=== PATIENT | female | born 1975 | race Caucasian/White ===

== ENCOUNTER 2017-10-13 21:55 | Emergency (ER) | payer MEDICAID, SELFPAY ==
[2017-10-13 21:57] VITALS: BP 134/86; PULSE 74; RESP 17; TEMP 37.1; O2SAT 98; BMI 23.3
[2017-10-13 22:06] LABS: Bedside Glucose 104 mg/dL (70-110)
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
--- NOTE | 2017-10-13 22:48 | ED.RN ---
UPON STARTING IV, PATIENT STATES THAT SHE IS NOW DEVELOPING NECK AND BACK PAIN, ALONG WITH RIGHT ARM PAIN. DR. REILLY MADE AWARE.
--- NOTE | 2017-10-13 22:55 | RAD_ITS ---
STUDY: X-RAY - THORACIC SPINE REASON FOR EXAM: Female, 42 years old. Upper back pain. TECHNIQUE: 2 view(s) of the thoracic spine were obtained. COMPARISON: None. FINDINGS: Normal kyphosis of the thoracic spine. There is no substantial scoliosis. There is mild multilevel endplate spondylosis of the thoracic vertebrae. Normal disc space heights. The soft tissue structures are unremarkable. RAD/Thoracic Spine 3 Views IMPRESSION: No fracture or acute abnormalities. Electronically Signed: Kings Mota MD at 23:24 EDT , Service support ,
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
--- NOTE | 2017-10-13 22:56 | RAD_ITS ---
STUDY: X-RAY - LUMBAR SPINE REASON FOR EXAM: Female, 42 years old. Low back pain TECHNIQUE: 3 view(s) of the lumbar spine were obtained. COMPARISON: None FINDINGS: Normal lumbar lordosis. There is no substantial scoliosis. There is a normal alignment of the vertebrae. There are multiple metallic clips in the right upper quadrant. This is consistent for a cholecystectomy. Normal vertebral bodies and endplates. Normal disc space heights. The soft tissue structures are unremarkable. RAD/Lumbar Spine 2 or 3 Views IMPRESSION: Normal x-ray examination of the lumbar spine. Electronically Signed: Aly Gonzales MD at 23:27 EDT , Service support ,
[2017-10-13 22:58] LABS: Basophil# 0.02 X10^3/uL; Basophil% 0.3 % (0-1); Eosinophil# 0.01 X10^3/uL; Eosinophils% 0.2 % (0-5); Hematocrit 35.6 % (37-47); Hemoglobin 12.1 g/dl (12.0-15.0); Lymphocyte % 23.8 % (19-41); Mean Corpuscular Hgb 31.1 pg (27.0-32.0); Mean Corpuscular Volume 91.5 fL (81-99); Mean Platelet Vol. 9.3 fl (6.2-12.0); Monocyte# 0.49 X10^3/uL; Monocyte% 8.3 % (0-10); Neutrophil # 3.95 X10^3/uL (2.7-7.7); Neutrophil % 67.2 % (47-70); POSITIVE COUNT NO; POSITIVE DIFFERENTIAL NO; POSITIVE MORPHOLOGY NO; Platelet Count 313 K/mm3 (150-450); RBC Distribution Width CV 12.7 % (11.6-14.6); Red Blood Count 3.89 M/mm3 (4.2-5.4); White Blood Count 5.9 K/mm3 (4.4-11.0)
--- NOTE | 2017-10-13 23:05 | RAD_ITS ---
STUDY: X-RAY - LEFT HAND, ATTENTION 5th FINGER REASON FOR EXAM: Female, 42 years old. Fifth digit pain. TECHNIQUE: 3 view(s) of the finger were obtained. COMPARISON: None. FINDINGS: Normal metacarpal head. Normal metacarpophalangeal joint. Normal proximal phalanx. Normal middle phalanx. Normal distal phalanx. Normal proximal interphalangeal joint. Normal distal interphalangeal joint. RAD/Finger(s) Min 2 Views IMPRESSION: Normal x-ray examination of the finger. Electronically Signed: Aly Gonzales MD at 23:27 EDT , Service support ,
[2017-10-13 23:20] LABS: ALB/GLOB Ratio 1.3 RATIO (0.9-2.4); AST(SGOT) 22 U/L (15-37); Alanine Aminotransfer ALT/SGPT 23 U/L (13-56); Albumin, Serum 3.6 g/dL (3.2-5.0); Alkaline Phosphatase 56 U/L (45-117); Anion Gap 5 (5-15); BUN 12 mg/dL (7-18); Calcium,Total 8.5 mg/dL (8.5-10.1); Chloride 106 mmol/L (98-107); Creatinine, Serum 0.71 mg/dL (0.55-1.02); EST Glomerular Filtration Rate 96 mL/min (>60); Est Glom Filt Rate - Afr Amer 116 mL/min (>60); Estimated Creatinine Clearance 94.66 ml/min; Globulin 2.8 g/dL (2.2-4.2); Glucose 85 mg/dL (74-106); Lipase 260 U/L (73-393); Potassium 3.6 mmol/L (3.5-5.1); Protein, Total 6.4 g/dL (6.4-8.2); Sodium Level 141 mmol/L (136-145)
[2017-10-13 23:24] LABS: Pregnancy, Serum, hCG Quali. NEGATIVE Negative (0-9 Nonpreg)
[2017-10-13] MEDS: Morphine 2 MG/ML Syringe IV (23:24)
--- NOTE | 2017-10-13 23:33 | CT_ITS ---
STUDY: CT CERVICAL SPINE WITHOUT CONTRAST REASON FOR EXAM: Female, 42 years old. Seizure RADIATION DOSAGE (If Supplied By Facility): CTDIvol = ( 18.06 ) mGy, DLP = ( 398.13 ) mGycm TECHNIQUE: High resolution transaxial imaging was performed without contrast material. Sagittal and coronal images were reconstructed. Individualized dose optimization techniques were used for this CT. COMPARISON: None FINDINGS: Normal craniovertebral junction. Normal anterior atlantoaxial articulation. Normal odontoid process. Normal cervical lordosis. Normal vertebral bodies and posterior osseous elements. C2-3: Normal endplates. Normal disc height and morphology. Normal central canal and intervertebral neuroforamina. C3-4: Normal endplates. Normal disc height and morphology. Normal central canal and intervertebral neuroforamina. C4-5: Normal endplates. Normal disc height and morphology. Normal central canal and intervertebral neuroforamina. C5-6: Normal endplates. There is mild loss of disc height and mild osteophytic ridging. There is NO malalignment. Facet joints are intact. There is NO spinal or foraminal stenosis. C6-7: Normal endplates. Normal disc height and morphology. Normal central canal and intervertebral neuroforamina. C7-T1: Normal endplates. Normal disc height and morphology. Normal central canal and intervertebral neuroforamina. Normal visualized soft tissue structures. CT/Spine Cervical without Contras IMPRESSION: There is NO acute fracture or malalignment. There is mild degenerative change at C5-C6. Electronically Signed: Edgard Soares MD at 0:47 EDT , Service support ,
[2017-10-13 23:56] LABS: Bacteria 0 SEEN /hpf (None Seen); Mucous, Urine 0 SEEN /hpf (<or=2+); Red Blood Cells-Urine 0 SEEN /hpf (0-5)
[2017-10-14 00:07] LABS: Color, Urine Yellow (Yellow); Glucose, Dipstick Normal (Normal); Ketone-Dipstick 5 mg/dl (Negative); Leukocyte Esterase-Dipstick 25 /ul (Negative); Nitrite-Dipstick Negative (Negative); Occult Blood-Urine Negative /ul (Negative); Protein-Dipstick 15 mg/dl (Negative); Urine Bilirubin Dipstick Negative (Negative); Urine Clarity Sl. Cloudy (Clear); Urine Urobilinogen Normal (Normal); Urine pH 6.5 (5.0 - 8.0)
[2017-10-14] MEDS: Ketorolac 30 MG/ML Syringe IV (00:08)
[2017-10-14 00:11] VITALS: BP 133/81; PULSE 58; RESP 14; O2SAT 99
[2017-10-14 00:14] LABS: Squamous Epithelial Cells - UA > 100 SEEN /hpf (5-10); White Blood Cells 0-5 SEEN /hpf (0-5)
--- NOTE | 2017-10-14 00:42 | ED.DEP ---
ED Disposition - Plan for ED Patient: Chief Complaint: Seizure Instructions: ED Seizure Recurrent, ED Fx Finger Closed Referrals: Thierry Wiley DO [Primary Care Provider] - 3-5 Days
--- NOTE | 2017-10-14 00:43 | ED.DEP ---
ED Disposition - Plan for ED Patient: Chief Complaint: Seizure Instructions: ED Fx Finger Closed, ED Seizure Recurrent Referrals: Thierry Wiley DO [Primary Care Provider] - 3-5 Days Additional Instructions: call Dr. Shah in the morning to discuss seizure and follow up.
--- NOTE | 2017-10-14 02:55 | ED.RN ---
DISPOSITION CHARTED ON DOWNTIME CHARTING.
== END 2017-10-14 01:21 | disposition home or self-care (01) ==
PROVIDERS: Emergency Provider Emergency Medicine; Family Provider Student in an Organized Health Care Education/Training Program; PCP Student in an Organized Health Care Education/Training Program
DX: S62.625A Displaced fracture of middle phalanx of left ring finger, initial encounter for closed fracture (principal); V47.5XXA Car driver injured in collision with fixed or stationary object in traffic accident, initial encounter; Y93.89 Activity, other specified; Y92.89 Other specified places as the place of occurrence of the external cause; Y99.9 Unspecified external cause status; G40.909 Epilepsy, unspecified, not intractable, without status epilepticus
CPT/HCPCS: 72040; 72072; 72100; 72125; 73140; 80053; 81001; 82962; 83690; 84703; 85025; 96374; 96375; 96376; 99285; J7030; J7040; A4216

== ENCOUNTER 2017-11-27 14:00 | Outpatient (RCR) | payer MEDICAID, SELFPAY ==
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
--- NOTE | 2017-11-27 14:40 | HP.PTDCSUM ---
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 Discharge Date: Please see the following information for a summary of their discharge status. - Subjective Subjective: PLAYED TENNIS FOR TWO HOURS THIS MORNING. PATIENT REPORTS SHE HAS NOT RETURNED TO WORK YET FOR REASONS OTHER THAN HER BACK. SHE REPORTS THAT SHE DID REALLY GOOD AFTER LAST VISIT. PATIENT REPORTS HER BACK IS ALMOST BACK TO WHERE IT WAS BEFORE THE ACCIDENT. - Pain LOW BACK Pain Intensity (Out of 10): 0 - Overall Improvement % Improvement: 90 - Objective Objective/Function: ALL GOALS MET. UPON EXAM, LUMBAR MVMT LOSS: FLEX - NIL, EXT - MOD, LEONARD SG - NIL. PATIENT DENIES INCREASED PAIN WITH LUMBAR ROM TESTING. INDEP WITH HEP. BACK OSWESTRY HAS IMPROVED FROM 15 TO 8. - Goals Goal 1:: DECREASE C/O LOW BACK AND LEONARD TOE SX'S Goal Progress: Goal Met Goal 2:: RETURN TO PRIOR LEVEL OF FUNCTION Goal Progress: Goal Met Goal 3:: INCREASE PAINFREE LUMBAR EXT ROM Goal Progress: Goal Met Goal 4:: INSTRUCT IN PROPHYLAXIS Goal Progress: Goal Met - Plan Plan: D/C TO INDEP HEP. PATIENT IS AGREEABLE TO DISCHARGE. - D/C Information If there are questions or concerns regarding this patient's physical therapy, please feel free to call me at [phone]. Thank you for the referral of this patient. Sincerely, Gina Rodriguez
== END 2017-11-27 19:00 | disposition home or self-care (01) ==
LOC: PT 14:00
PROVIDERS: Family Provider Student in an Organized Health Care Education/Training Program; PCP Student in an Organized Health Care Education/Training Program; Visit Provider Student in an Organized Health Care Education/Training Program
DX: M54.5 Low back pain (principal); G89.29 Other chronic pain
CPT/HCPCS: 97014; 97035; 97110; 97162; 97164; 97530; G0283

== ENCOUNTER → 2018-07-12 12:13 | Outpatient (CLI) | payer MEDICAID, SELFPAY ==
--- NOTE | 2018-07-12 12:26 | EKG12_ITS ---
Test Reason : PREOP Blood Pressure : / mmHG Vent. Rate : 058 BPM Atrial Rate : 058 BPM P-R Int : 158 ms QRS Dur : 090 ms QT Int : 412 ms P-R-T Axes : 040 089 048 degrees QTc Int : 404 ms Sinus bradycardia Otherwise normal ECG When compared with ECG of 23-MAR-2016 18:31, No significant change was found Confirmed by LONG HOLDEN, OSIRIS ([id number]), development editor JAMES KUHN ([id number]) on 07/13/2018 1:42:01 PM Referred By: Italo Lawson Confirmed By:OSIRIS ALVES MD
== END ==
PROVIDERS: Family Provider Student in an Organized Health Care Education/Training Program; PCP Student in an Organized Health Care Education/Training Program; Referring Provider Orthopaedic Surgery; Visit Provider Orthopaedic Surgery
DX: Z01.810 Encounter for preprocedural cardiovascular examination (principal)
CPT/HCPCS: 93005

== ENCOUNTER 2018-09-01 09:30 | Outpatient (RCR) | payer MEDICAID, SELFPAY ==
--- NOTE | 2018-08-05 14:39 | HP.OTEVAL_ITS ---
Patient's Visit Information JUDIE STANLEY is a 43 year old F, referred to Occupational Therapy by Italo Lawson DO, with a diagnosis of Right radial styloid tenosynovitis DeQuarvains. Date of Evaluation: 08/03/18 Occupational Therapist: Maile Espitia, DEONNA/Denia, CHT - Subjective Subjective: This 43 year old female was seen for intial OT eval with dx of Radial Styloid tenosynovitis / DeQuarvains. Pt states she has had issues with pain for awhile. pt states she did have 3 cortizone shots- Ater they did not help pt did have sx on 07/15/18 sitches removed last week-pt is hopeful she can start using her hand again for all ADLs and IADLs soon. 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 Goal:: pt will demo right wrist ROM equal to left to return pt to PLOF with ADLs and IADLs by d/c Goal:: pt will demo pain no greater than 1/10 with use of right hand ADLs and IADLS. Goal:: pt will demo understanding of scar mtg and desensitization by end of 2nd visit to decrease scar adhesions. - Rehabilitation General Assessment: PT arrives 2 weeks and 5 days S/P dequarvains release. Pt demo with limited right wrist ROM and functional strength- pt demo with slight brusing (yellow skin discoloration). pts scar is sensitive to touch and limits pts use of long sleeves. pt demo need for skilled OT services 2-3x week for 4 weeks to retun pt to PLOF. Today pt was ed. on wrist ROM, thumb ROM, ice, scar mtg and desensitization. Pt demo understanding and agrees to POC. Rehabilitation Potential: Excellent - Anticipated Interventions Anticipated Interventions: A/AAROM/PROM, Strengthening, Scar Care, Desensitization, Modalities - Visit Plan Frequency: 2-3x /Week Duration: 4 Weeks TEXT: Thank you for the opportunity to evaluate your patient. For Medicare and Medicare HMO plans, please review the plan of care and approve it. It will need to be FAXED BACK to us at [phone] for Medicare purposes. Please let me know if there are questions or concerns regarding this plan of care. Physician Signature: Date:
--- NOTE | 2018-11-05 10:02 | HP.OT.NRP ---
HP - Discharge Summary - Patient Information JUDIE STANLEY was seen in my office for initial evaluation on 08/03/18. The following Plan of Care was established for this patient: Initial Frequency: 2-3x /Week Initial Duration: 4 Weeks Plan: cont w/ prior POC - Anticipated Interventions Anticipated Interventions: A/AAROM/PROM, Strengthening, Scar Care, Desensitization, Modalities This patient was last seen in our office 09/01/18. Pertinent comments regarding their Occupational therapy will appear below: Pt was seen in OT for 11 visits following 1st dorsal release. pt has progressed well and has returned to playing tennis. Pt has not returned for further tx and is d/c with HEP. At this point I will be discontinuing this patient from occupational therapy. I would be happy to see this patient again in the future if found appropriate by the physician. Thank you! Maile Espitia, OTR/L, CHT
== END 2018-09-01 19:00 | disposition home or self-care (01) ==
LOC: OT 09:30
PROVIDERS: Family Provider Student in an Organized Health Care Education/Training Program; PCP Student in an Organized Health Care Education/Training Program; Referring Provider Orthopaedic Surgery; Visit Provider Orthopaedic Surgery
DX: M65.4 Radial styloid tenosynovitis [de Quervain] (principal)
CPT/HCPCS: 97035; 97110; 97140; 97166

== ENCOUNTER 2019-02-28 20:35 | Emergency (ER) | payer MEDICAID, SELFPAY ==
[2019-02-28 20:36] VITALS: BP 147/84; PULSE 95; RESP 16; TEMP 36.7; O2SAT 97; BMI 22.4
[2019-02-28 21:40] VITALS: BP 129/87; PULSE 75; RESP 17; O2SAT 100
--- NOTE | 2019-02-28 21:44 | ED.DCSUM_ITS ---
- ER Visit Summary Date of Service: 02/28/19 Chief Complaint: Seizure History of Present Illness: The patient is a 43 F who presents with a seizure that occurred today while playing basketball. Patient states she was told by witnesses that it was approximately 45 seconds in length. Patient states she was told it was generalized and tonic-clonic. Patient states that bystanders also told her that she was postictal for approximately 3 to 5 minutes. Patient has a history of seizures and states this is similar to other seizures. Patient bit her lower lip. Patient denies any incontinence of urine or stool. Physical Examination: Vital signs are stable. Patient is afebrile. Patient is in no acute distress. Oral mucosa is pink and moist. There is a superficial abrasion and contusion of the lower lip. There are no other intraoral abrasions or lacerations. Neck is supple. Trachea is midline. There is no JVD noted. Heart was regular rate and rhythm. Lungs are clear and equal bilaterally. Abdomen is soft. Bowel sounds are normal. There is no tenderness. There is no guarding noted. Skin is warm dry. Cranial nerves II through XII are intact. There are no focal motor or sensory deficits noted. Emergency Department Course and Treatment: Patient is feeling better on reevaluation. Patient was instructed to follow-up with her primary care physician and neurologist in 5 to 7 days. Patient and her understood and were agreeable with the plan. All questions were answered. Disposition: Discharge home Impression: Seizure This note was generated with [employer] dictation software. It may contain incorrect words, spelling, and punctuation that were not noted in review of the chart prior to signing ED Disposition - Plan for ED Patient: Disposition: Home or Assisted Living Diagnosis: Seizure Instructions: SEIZURE, Recurrent [Adult] Referrals: Thierry Wiley DO [Primary Care Provider] - 3-5 Days
[2019-02-28 21:53] VITALS: BP 121/83; PULSE 79; RESP 17; O2SAT 100
== END 2019-02-28 22:12 | disposition home or self-care (01) ==
LOC: ED 22:11
PROVIDERS: Emergency Provider Emergency Medicine; Family Provider Student in an Organized Health Care Education/Training Program; PCP Student in an Organized Health Care Education/Training Program
DX: S01.551A Open bite of lip, initial encounter (principal); Y93.67 Activity, basketball; R56.9 Unspecified convulsions; J02.9 Acute pharyngitis, unspecified; M54.9 Dorsalgia, unspecified
CPT/HCPCS: 99284; A4216

== ENCOUNTER → 2022-07-04 | Outpatient (CLI) | payer MEDICAID, SELFPAY ==
--- NOTE | 2022-07-04 09:17 | MRI_ITS ---
EXAM: MR RIGHT UPPER EXTREMITY WITHOUT INTRAVENOUS CONTRAST, SHOULDER CLINICAL INDICATION: RIGHT shoulder IMPINGEMENT SYNDROME TECHNIQUE: Multiplanar and multisequence MR images of the right shoulder without intravenous contrast. This report was created using [employer] and [employer] report Patient Engagement Systems technology. COMPARISON: None. FINDINGS: TENDONS: SUPRASPINATUS: Low to moderate grade focal partial-thickness tearing of the supraspinatus tendon at the level of the footprint of the tendon. Background of mild to moderate supraspinatus tendinosis. INFRASPINATUS: Moderate grade focal partial thickness insertional tear of the infraspinatus tendon involving the articular fibers and the intrasubstance fibers with preservation of the bursal surface fibers. Background of moderate infraspinatus tendinosis. SUBSCAPULARIS: Unremarkable. Intact. TERES MINOR: Unremarkable. Intact. BICEPS BRACHII, LONG HEAD: Long head of the biceps tendon is normal in position and appearance. The extra-articular biceps tendon is in the bicipital groove. LIGAMENTS: GLENOHUMERAL: Unremarkable. Intact. MUSCLES: Unremarkable. No rotator cuff muscle atrophy. FLUID: At least a moderate amount of fluid in the subacromial/subdeltoid bursa is concerning for bursitis. No significant glenohumeral joint effusion. CARTILAGE: Unremarkable. Articular cartilage intact. GLENOID LABRUM: Somewhat attenuated appearance of the anterior labrum. If concerned for labral tear, recommend MR arthrography. BONES/JOINTS: Up to moderate hypertrophic degenerative changes of the acromioclavicular joint with mild/moderate mass effect on the underlying soft tissues. Hooked appearance of the acromion. No additional subacromial enthesophyte. No os acromiale. Thickened appearance of the coracoacromial ligament. Small benign cyst at the posterior superior humeral head. No other remarkable bone marrow signal alterations. No concerning bone marrow signal alterations. OTHER SOFT TISSUES: Elongated lobulated cyst along the infraspinatus myotendinous junction is most likely associated with a musculotendinous junction low to moderate grade partial-thickness tear. MRI/Upper Ext Joint Only(Routine) IMPRESSION: 1. Low to moderate grade focal partial-thickness tearing of the supraspinatus tendon at the level of the footprint of the tendon. 2. Moderate grade focal partial thickness insertional tear of the infraspinatus tendon involving the articular fibers and the intrasubstance fibers with preservation of the bursal surface fibers. 3. Elongated lobulated cyst along the infraspinatus myotendinous junction is most likely associated with a musculotendinous junction low to moderate grade partial-thickness tear. 4. At least a moderate amount of fluid in the subacromial/subdeltoid bursa is concerning for bursitis. 5. Somewhat attenuated appearance of the anterior labrum. If concerned for labral tear, recommend MR arthrography. Electronically Signed: Oni Ta MD at 21:57 EST ,
--- NOTE | 2022-07-04 09:18 | MRI_ITS ---
EXAM: MR LEFT UPPER EXTREMITY WITHOUT INTRAVENOUS CONTRAST, SHOULDER CLINICAL INDICATION: LEFT SHOULDER- IMPINGEMENT SYNDROME TECHNIQUE: Multiplanar and multisequence MR images of the left shoulder without intravenous contrast. This report was created using [employer] report paymio technology. COMPARISON: None. FINDINGS: TENDONS: SUPRASPINATUS: At the junction of the posterior fibers of the supraspinatus tendon and anterior fibers of the infraspinatus tendon there is a moderate grade articular sided partial-thickness tear extending into the intrasubstance tissues on a background of moderate supraspinatus and infraspinatus tendinosis. INFRASPINATUS: See above. SUBSCAPULARIS: Unremarkable. Intact. TERES MINOR: Unremarkable. Intact. BICEPS BRACHII, LONG HEAD: Long head of the biceps tendon is normal in position and appearance. The extra-articular biceps tendon is in the bicipital groove. LIGAMENTS: GLENOHUMERAL: Unremarkable. Intact. MUSCLES: Muscles are normal. No rotator cuff muscle atrophy. FLUID: Fluid in the subacromial/subdeltoid bursa is concerning for bursitis. No glenohumeral joint effusion. CARTILAGE: Unremarkable. Articular cartilage intact. GLENOID LABRUM: Unremarkable. No labral tearing. BONES/JOINTS: Up to moderate hypertrophic degenerative changes acromioclavicular joint with mild mass effect on the underlying soft tissues. Hooked appearance of the acromion. No additional subacromial enthesophyte. No os acromiale. Mild thickening of the coracoacromial ligament. Small benign cystic changes at the posterior superior humeral head. No concerning bone marrow signal alterations. OTHER SOFT TISSUES: Unremarkable. No rotator interval edema. OTHER FINDINGS: Neurovascular structures are unremarkable. MRI/Upper Ext Joint Only(Routine) IMPRESSION: 1. At the junction of the posterior fibers of the supraspinatus tendon and anterior fibers of the infraspinatus tendon there is a moderate grade articular sided partial-thickness tear extending into the intrasubstance tissues on a background of moderate supraspinatus and infraspinatus tendinosis. 2. Fluid in the subacromial/subdeltoid bursa is concerning for bursitis. Electronically Signed: Oni Ta MD at 21:41 EST ,
== END | disposition home or self-care (01) ==
PROVIDERS: PCP Student in an Organized Health Care Education/Training Program; Referring Provider Orthopaedic Surgery; Visit Provider Orthopaedic Surgery
DX: M75.42 Impingement syndrome of left shoulder (principal); M75.41 Impingement syndrome of right shoulder
CPT/HCPCS: 73221

== ENCOUNTER 2022-08-11 05:56 | Day surgery (SDC) | payer MEDICAID, SELFPAY ==
[2022-07-31 15:19] LABS: Hematocrit 42.8 % (37-47); Mean Corp Hgb Conc 32.7 g/dL (32-36); Mean Corpuscular Hgb 30.2 pg (27.0-32.0); Mean Corpuscular Volume 92.4 fL (81-99); Mean Platelet Vol. 9.6 fl (6.2-12.0); Platelet Count 368 K/mm3 (150-450); RBC Distribution Width CV 13.1 % (11.6-14.6); RBC Distribution Width SD 44.6 fl (35.1-43.9); Red Blood Count 4.63 M/mm3 (4.2-5.4); White Blood Count 6.3 K/mm3 (4.4-11.0)
[2022-07-31 15:28] LABS: Prothrombin Time (Protime)PT. 12.7 SECONDS (11.7-14.9)
[2022-07-31 15:29] LABS: Partial Thromboplast Time 27.6 Seconds (24.1-36.2)
[2022-07-31 15:51] LABS: AST(SGOT) 16 U/L (15-37); Alanine Aminotransfer ALT/SGPT 25 U/L (13-56); Albumin, Serum 4.2 g/dL (3.2-5.0); Alkaline Phosphatase 65 U/L (45-117); Bilirubin, Direct 0.11 mg/dL (0.00-0.30); Globulin 3.2 g/dL (2.2-4.2); Protein, Total 7.4 g/dL (6.4-8.2); Thyroid Stim Hormone (TSH) 0.35 uIU/mL (0.358-3.74)
[2022-08-11] VITALS (9 sets, daily range): BP systolic 100–126; BP diastolic 69–81; PULSE 46–78; RESP 16–18; TEMP 36–36.8; O2SAT 94–100; BMI 23.1
[2022-08-11 06:40] LABS: Internal QC Validated? YES +Cl - CLEAR BKGD; Pregnancy, Urine Negative Negative
[2022-08-11] MEDS: Lactated Ringers 1,000 ML 15 ML IV ×2 (06:44→09:00)
[2022-08-11] MEDS: Cefazolin 2 GM in 0.9% Normal Saline 100 ML IV (07:33)
[2022-08-11] MEDS: dexAMETHasone 4 MG/ML Vial (08:00)
[2022-08-11] MEDS: Bupiv/Epi 0.25% 30 ML Vial (08:04)
[2022-08-11] MEDS: Epinephrine (1 mg/ml) 1 MG/ML VIAL (08:16)
--- NOTE | 2022-08-11 11:19 | OP.PCM_ITS ---
Report of Operation Date of Procedure: 08/11/22 Pre-Operative Diagnosis: SAIS, AC joint arthrosis, RCT right shoulder Post-Operative Diagnosis: same Surgery/Procedure Performed:: ASD, Thierry procedure, RCR right shoulder Description of Surgical Findings:: Report of Operation Date of Procedure: 08/11/2022 Preoperative Diagnosis: Right shoulder, SAIS, AC joint arthrosis and RCT Postoperative Diagnosis: Right Shoulder, same Operation: Diagnostic and operative arthroscopy of the right shoulder with arthroscopic subacromial decompression, Thierry procedure and rotator cuff repair Surgeon: Dr Italo Lawson DO Professor Of Nursing: LETA Ervin Anesthesia: General Anesthesiologist: Blake Gallegos M.D. Description of Procedure: With appropriate informed consent, the patient was taken to the operative suite. After induction of general and regional anesthesia and administration of preoperative antibiotics, the patient was placed in a beach-chair position with all bony prominences well padded. SCD's were on the legs. The right arm and shoulder were prepared and draped sterilely. Thereafter, the standard arthroscopy portals were established. The glenohumeral joint was in good condition without evidence of damage or arthrosis. An anterior portal was established. The biceps tendon was in excellent condition. There was no labral instability. There was a tear of the supraspinatus into the leading edge of the infraspinatus. The undersurface of this was debrided with a shaver and marked with an 0 Prolene suture for easier identification from the bursal surface. The arthroscopy instruments were then removed from the joint and placed into the subacromial space. A lateral portal was established. There was severe hypertrophic subacromial bursitis. A complete subacromial bursectomy was carried out. This revealed a large anterior inferior subacromial spur and significant AC joint arthrosis. A bur was utilized to perform an anterior inferior acromionectomy to flatten the undersurface of the acromion and decompress the subacromial space. The bur was then utilized to resect the distal 9mm of the clavicle in the manner of Thierry. Attention was now brought to the rotator cuff. The rotator cuff footprint was slightly decorticated with a bur. Thereafter, [ 4 ] Arthrex FiberTape suture was placed in a horizontal mattress fashion and then augmented with a FiberLoop to augment the repair. The sutures were brought out laterally then over [ 2 ] SwiveLock anchor, very nicely bringing the rotator cuff back down to the footprint and compressing it. The free ends of the sutures were cut and I was able to take the shoulder through a full range of motion with no evidence of undue impingement or undue tension upon the repair. Arthroscopy instruments and fluids were removed. The portals were closed with interrupted sutures of 4-0 nylon followed by application of a sterile well- padded dressing and UltraSling. My bilingual teacher assistant, Mr Perrin, provided a vital role in the performance of this procedure beginning with positioning of the patient, maneuvering the arm, holding the arthroscope during various portions of the diagnostic and operative arthroscopy. Then, under my direct supervision, he closed the wounds and applied the sterile post-operative dressing. The patient was extubated and transferred to the PACU in stable and satisfactory condition. Italo Lawson DO Surgeon: Italo Lawson set and exhibit designer: Steven Liao Type of Anesthesia: General/Regional Anesthesiologist: Blake Gallegos Estimated Blood Loss (mL): 10 cc Admit VTE Documentation VTE Present on Admission: No VTE Mechan Device Prophylaxis: SCD's and Thigh High KELLI Hose VTE Pharm Prophylaxis ordered?: No Reason prophylaxis not ordered:: Treatment Not Indicated
[2022-08-11] MEDS: HYDROcodone Bitartrate/Apap 5/325 Tablet PO (11:21)
== END 2022-08-11 12:58 | disposition home or self-care (01) ==
LOC: SDC 05:58 → AC 06:01
PROVIDERS: Anesthesiology; PCP Student in an Organized Health Care Education/Training Program; Referring Provider Orthopaedic Surgery; Visit Provider Orthopaedic Surgery
PROC: (CPT 29827; principal; 2022-08-11 07:10)
DX: M19.011 Primary osteoarthritis, right shoulder (principal); G40.909 Epilepsy, unspecified, not intractable, without status epilepticus; S46.011D Strain of muscle(s) and tendon(s) of the rotator cuff of right shoulder, subsequent encounter; S46.012D Strain of muscle(s) and tendon(s) of the rotator cuff of left shoulder, subsequent encounter; Z86.16 Personal history of COVID-19
CPT/HCPCS: 29826; 29827; 29824; 01630; 36415; 80076; 81025; 84443; 85027; 85610; 85730; J7120; J0702; J2405

== ENCOUNTER → 2022-10-10 | Outpatient (CLI) | payer MEDICAID, SELFPAY ==
--- NOTE | 2022-10-10 15:01 | VDLE_ITS ---
Reason For Study: Pain RIGHT LEFT CFV is compressible, spontaneous, phasic, CFV is compressible, spontaneous, phasic, competent and demonstrates normal competent, and demonstrates normal augmentation. augmentation. FV is compressible, spontaneous, phasic, FV is compressible, spontaneous, phasic, competent and demonstrates normal competent and demonstrates normal augmentation. augmentation. POP V is compressible, spontaneous, phasic, POP V is compressible, spontaneous, phasic, competent and demonstrates normal competent and demonstrates normal augmentation. augmentation. T/P Trunk is compressible. T/P Trunk is compressible. PTV is compressible. PTV is compressible. RT PerV is compressible. LT PerV is compressible. SFJ is competent and measures 0.74 x 0.75 cm. SFJ is competent and measures 0.68 x 0.66 cm. GSV proximal thigh measures 0.42 x 0.47 cm. GSV proximal thigh measures 0.40 x 0.41 cm. GSV above knee is competent. GSV above knee is INCOMPETENT for greater GSV at knee measures 0.45 x 0.47 cm. than 0.5 seconds. GSV below knee is INCOMPETENT for greater GSV at knee measures 0.32 x 0.30 cm. than 0.5 seconds. GSV below knee is competent. SSV proximal calf is competent and measures SSV proximal calf is competent and measures 0.20 x 0.21 cm. 0.26 x 0.27 cm. Procedure This is a venous duplex using B-mode, color flow and spectral Doppler. Exam performed in department. Patient was scanned in reverse Trendelenburg position during reflux assessment. VL/Venous Duplex US - Juanito Extrem Interpretation Summary Deep veins of the bilateral lower extremities are patent and compressible segme ntally. There is no evidence of bilateral lower extremity deep vein thrombosis. The bilateral great saphenous veins appear patent and compressible segmentally. Positive for reflux in the right great saphenous vein below the knee Positive for reflux in the left great saphenous vein above the knee Ordering Physician: Sola Estes Referring Physician: Thierry Wiley Performed By: Nadine Argueta RVT
== END | disposition home or self-care (01) ==
LOC: CVS 15:00
PROVIDERS: PCP Student in an Organized Health Care Education/Training Program; Referring Provider Physician Assistant; Visit Provider Physician Assistant
DX: M79.604 Pain in right leg (principal); I83.811 Varicose veins of right lower extremity with pain
CPT/HCPCS: 93970

== ENCOUNTER 2022-11-27 10:01 | Day surgery (SDC) | payer MEDICAID, SELFPAY ==
[2022-11-26 07:38] VITALS: BMI 23.7
[2022-11-27 10:28] LABS: Hematocrit 42.5 % (37-47); Hemoglobin 13.9 g/dL (12.0-15.0); Mean Corp Hgb Conc 32.7 g/dL (32-36); Mean Corpuscular Hgb 30.5 pg (27.0-32.0); Mean Corpuscular Volume 93.4 fL (81-99); Mean Platelet Vol. 8.9 fl (6.2-12.0); Platelet Count 341 K/mm3 (150-450); RBC Distribution Width CV 13.3 % (11.6-14.6); RBC Distribution Width SD 45.4 fl (35.1-43.9); Red Blood Count 4.55 M/mm3 (4.2-5.4); White Blood Count 4.3 K/mm3 (4.4-11.0)
[2022-11-27 10:51] LABS: Anion Gap 4 (5-15); BUN 12 mg/dL (7-18); BUN/Creat Ratio 16.2 RATIO (10-20); Calcium,Total 9.4 mg/dL (8.5-10.1); Chloride 108 mmol/L (98-107); Creatinine, Serum 0.74 mg/dL (0.55-1.02); EST Glomerular Filtration Rate 88 mL/min (>60); Est Glom Filt Rate - Afr Amer 107 mL/min (>60); Estimated Creatinine Clearance 86.09 ml/min; Glucose 93 mg/dL (74-106); Potassium 4.1 mmol/L (3.5-5.1); Sodium Level 141 mmol/L (136-145)
--- NOTE | 2022-11-27 12:30 | OP.PCM_ITS ---
Report of Operation Date of Procedure: 11/27/22 Pre-Operative Diagnosis: venous insufficiency, varicose veins with pain Post-Operative Diagnosis: same Surgery/Procedure Performed:: glue ablation, right great saphenous vein Description of Surgical Findings:: 49 cm treatment length, < 3 cc glue Surgeon: Nico Dykes Type of Anesthesia: Local and Sedation,Conscious Description of Procedure: HPI: Patient is a 47-year-old female with painful varicose veins which have been refractory to compression stockings. She did venous duplex with reflux ev aluation which revealed greater saphenous reflux particularly below the knee. She is taken now for the lower ablation. Description of procedure: Upon obtaining form consent and verification correct patient procedure site patient was in Correctional Supply Supervisor where she was positioned prepped and draped in usual sterile fashion. Time was performed conscious sedation administered with Versed. Ultrasound used to evaluate the greater saphenous vein throughout its course and was actually found to be very underfilled, and spasming and likely low volume status. Patient was placed in reverse Trendelenburg position, IV fluids were infused, and warming blankets were applied. After several minutes there was significant improvement in the diameter of the saphenous vein however is not of the size noted on the previous imaging. It was felt this could be successfully cannulated so a suitable access point was identified in the proximal calf. Skin was anesthetized with 1% lidocaine and the vessel accessed under ultrasound guidance in retrograde fashion with a micropuncture needle wire. This was then exchanged for the ablation sheath. Catheter was then advanced via the sheath into the saphenous vein and positioned in the common femoral vein. Groove delivery guide was then advanced over the wire and positioned at the saphenofemoral junction. Wire and dilator were withdrawn and the glue delivery catheter advanced and positioned in satisfactory distance below the saphenofemoral junction. Glue was then infused manner pressure held for 3 minutes per instructions. Sequential balloon fusion throughout the length of the saphenous vein per retail merchandising coordinator instructions was performed down to just above the sheath. The delivery guide and catheter then withdrawn and the sheath was removed and manual pressure held until hemostasis was obtained. Dry sterile dressing and Balwinder wrap were then applied the patient was taken recovery room with anticipated discharged home.
== END 2022-11-27 13:30 | disposition home or self-care (01) ==
LOC: CLSP 10:04
PROVIDERS: PCP Student in an Organized Health Care Education/Training Program; Referring Provider Surgery Trauma Surgery; Visit Provider Surgery Trauma Surgery
DX: I87.2 Venous insufficiency (chronic) (peripheral) (principal); I83.811 Varicose veins of right lower extremity with pain; E07.9 Disorder of thyroid, unspecified
CPT/HCPCS: 36415; 36482; 80048; 85027; 99152; 99153; C1894; J7040

== ENCOUNTER → 2022-12-01 | Outpatient (CLI) | payer MEDICAID, SELFPAY ==
--- NOTE | 2022-12-01 13:11 | VDLE_ITS ---
Reason For Study: Rt Leg Swelling RIGHT LEFT GSV is DILATED and NONCOMPRESSIBLE from prox CFV is compressible, spontaneous, phasic, thigh to prox calf. Mixed intraluminal echoes competent, and demonstrates normal consistent with prior chemical ablation augmentation. procedure. GSV prox calf to ankle is compressible. CFV is compressible, spontaneous, phasic, competent and demonstrates normal augmentation. FV is compressible, spontaneous, phasic, competent and demonstrates normal augmentation. POP V is compressible, spontaneous, phasic, competent and demonstrates normal augmentation. T/P Trunk is compressible. PTV is compressible. RT PerV is compressible. Procedure This is a venous duplex using B-mode, color flow and spectral Doppler. Exam performed in department. The exam was diagnostic. VL/Venous Duplex US, Unilateral Interpretation Summary Deep veins of the right lower extremity are patent and compressible segmentally . There is no evidence of right lower extremity deep vein thrombosis. S/P successful right great saphenous ablation. Ordering Physician: Sola Estes Referring Physician: Sola Estes Performed By: Thom Britton RVChase
== END | disposition home or self-care (01) ==
LOC: CVS 13:11
PROVIDERS: PCP Student in an Organized Health Care Education/Training Program; Referring Provider Physician Assistant; Visit Provider Physician Assistant
DX: I83.811 Varicose veins of right lower extremity with pain (principal); Z48.812 Encounter for surgical aftercare following surgery on the circulatory system
CPT/HCPCS: 93971

== ENCOUNTER 2022-12-10 12:39 | Outpatient (RCR) | payer MEDICAID, SELFPAY ==
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
--- NOTE | 2022-12-11 12:19 | HP.OTFCE.D ---
FCE D/C Summary Discharge text: JUDIE STANLEY was seen for a one time visit for an FCE on 12/10/22 and is discharged.
== END 2022-12-10 19:00 | disposition home or self-care (01) ==
LOC: OT 12:39
PROVIDERS: PCP Student in an Organized Health Care Education/Training Program
DX: M47.816 Spondylosis without myelopathy or radiculopathy, lumbar region (principal); M54.50 Low back pain, unspecified; G89.29 Other chronic pain
CPT/HCPCS: 97750

== ENCOUNTER 2022-12-11 10:00 | Outpatient (RCR) | payer MEDICAID, SELFPAY ==
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
--- NOTE | 2022-11-13 10:45 | HP.PTREVAL_ITS ---
Yign Collado, MARRIAGE PERFORMER-C, It has been my pleasure to treat JUDIE STANLEY over the last 9 visits for LUMBAR SPONDYLOSIS, DDD, RADICULITIS, SPONDYLOLISTHESIS AND FACET ARTHROP.. Please see the progress note below for an update on the physical therapy plan of care! Subjective: PATIENT REPORTS FOLLOW UP PENDING WITH DR. WOO AND REVOLVING FIELD ASSEMBLER (VIRTUAL) TOMORROW. PATIENT REPORTS APPROX 50% IMPROVEMENT SINCE STARTING PT. STATES SHE IS STRONGER, CAN WALK LONGER AND BEND BETTER. LESS POPPING IN HER BACK. LOW BACK AND R LE PAIN IS RANGING 5 TO 7/10 NOW. PATIENT REPORTS SHE HAS HAD [address] WOO AND HER R LEG SX'S GOT WORSE AFTER THAT (October). CURRENTLY R LE SX'S ARE STAYING THE SAME. PATIENT REPORTS SORENESS AFTER LAST POOL SESSION BUT RECOVERED WITHIN A DAY. MRI RESULTS FROM 10/21 SHOW BULGING DISC AND STENOSIS THAT HAVE PROGRESSED FROM LAST MRI. DID A ROUND A PREDNISONE AND PUT HER ON IBUPROFEN AND SHE FEELS THAT HAS HELPED. Objective/Function: PATIENT WAS SEEN TODAY FOR RE-ASSESSMENT OF PROGRESS TOWARD THE SET PT GOALS AND THE NEED FOR FURTHER PHYSICAL THERAPY VS READINESS FOR DISCHARGE. PATIENT NOW HAS BETTER LUMBAR FLEXION ROM BUT WORSE LEONARD SG ROM. LEONARD LE DURAL TESTS WERE NEGATIVE AT EVAL AND POSITIVE TODAY. SHE IS REPORTING LESS PAIN OVER-ALL BUT OSWESTRY SHOWS GREATER FUNCTIONAL LIMITATIONS. IT IS DIFFICULT AT THIS POINT TO DETERMINE IF PT IS HELPING JODI. WOULD RECOMMEND INDEP POOL EX AT THIS TIME AND FOLLOW UP WITH PAIN MGMT AND SPINE SPECIALISTS. UPON EXAM TODAY: LEONARD LE DURAL SIGNS: POSITIVE LEONARD R > L. Lumbar mvmt loss: flex - NIL. ext - NT. R SG - MOD TO GIOVANNA. L SG - MOD TO GIOVANNA. PATIENT DENIES INCREASED BACK PAIN WITH LUMBAR ROM TESTING ALL PLANES TODAY. Core strength: POOR. Palpation: NO ACUTE TENDERNESS OF SPINE WITH LIGHT PALPATION. PATIENT REPORTS IT HURTS WHETHER I AM PUSHING ON IT OR NOT. [ End ] Plan Plan: HOLD PT Balance/Gait/Functional tests - Balance/Special Test Scores Oswestry Low Back Score: 27 Goals Goal 1:: DECREASE C/O BACK AND LE SX'S. Goal Time Frame: 4-6 Weeks Goal Progress: Not Progressing Goal 2:: IMPROVE PERSONAL CARE, LIFTING, WALKING, SITTING, STANDING, SLEEP, SOCIAL LIFE, TRAVEL AND WORK/HOMEMAKING FUNCTION. Goal Time Frame: 4-6 Weeks Goal Progress: Not Progressing Goal 3:: INSTRUCT IN PROPHYLAXIS Goal Time Frame: 4-6 Weeks Goal Progress: Questionable Anticipated Interventions Patient/Client Instruction: Educate patient on: Condition, Plan of Care, Risk Factors For the Purpose of:: To improve self management Therapeutic Exercise to Include: Strength training, Body mechanics, Postural training, Flexibilty training, Neuromotor development, In an aquatic setting, Dynamic Lumbar Stabilization For the Purpose of:: To decrease pain, To increase ROM, To improve muscle performance and motor function, To improve performance and independence with ADL 's, To improve ability of physical actions for home/community/work/leisure Please do not hesitate to contact me at [phone] by phone or if you have questions or concerns regarding this new plan of care! Sincerely, Gina Rodriguez, PT, Cert MDT
--- NOTE | 2022-12-15 16:50 | HP.PTREVAL ---
Re-Evaluation Intro: DEION Burrell, It has been my pleasure to treat JUDIE STANLEY over the last 10 visits for LUMBAR SPONDYLOSIS, DDD, RADICULITIS, SPONDYLOLISTHESIS AND FACET ARTHROP.. Please see the progress note below for an update on the physical therapy plan of care! Subjective Subjective: PATIENT PRESENTS TO PT WITH NEW ORDER FROM MANN BRADEN CNP AT [facility] FOR AQUATIC THERAPY AFTER NOT BEING AT THERAPY X 1 MONTH. SEE ORDER FOR ALL DIAGNOSIS. PATIENT REPORTS SHE HAS NOT BEEN DOING INDEP POOL EX. DUE TO inconsistent ACCESS TO POOL. STATES SHE HAD AN FCE YESTERDAY WITH RESULTS PENDING. PATIENT REPORTS THAT SINCE LAST PT VISIT SHE HAS SEEN A FISH AND WILDLIFE TECHNICIAN AT THE [facility] X 2 WITH MEDS PRESCRIBED AND HAS A CONSULT WITH A SPINE SURGEON AT THE [facility] PENDING. 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 PATIENT REPORTS THE FISH AND WILDLIFE TECHNICIAN TOLD HER TO CONTINUE PT. PATIENT REPORTS SHE IS STILL GOING TO PHYSICAL THERAPY FOR HER R SHLD AT [facility]. Objective Objective/Function: PATIENT WAS SEEN TODAY FOR RE-ASSESSMENT OF PROGRESS TOWARD THE SET PT GOALS AND THE NEED FOR FURTHER PHYSICAL THERAPY VS READINESS FOR DISCHARGE FOR HER LUMBAR DX'S. HER NEW PT ORDER INCLUDES CERVICAL DX'S BUT HER NECK WAS NOT EVALUATED TODAY DUE TO THE EXTENT OF ASSESSEMENT NEEDED FOR HER LUMBAR SPINE. UPON EXAM TODAY THERE ARE NO SIGNIFICANT CHANGES (EXCEPT INCREASED LUMBAR FLEX LIMITATION) COMPARED TO ASSESSMENT 11/13/22 AND OVER-ALL HER OSWESTRY SCORE IS SHOWING A LITTLE BIT OF IMPROVEMENT IN HER FUNCTION SINCE LAST VISIT (WALKING, SLEEP AND PERSONAL CARE WENT FROM 2 TO 1 EA). IT IS STILL DIFFICULT AT THIS POINT TO DETERMINE IF PT WAS HELPING ERASMONET. WOULD RECOMMEND RESUMING POOL EX AT THIS TIME BASED ON NEW PT ORDERS REC'D AND PATIENT DESIRE TO RESUME PT WHILE FOLLOWING UP WITH PAIN MGMT AND SPINE SPECIALISTS. UPON EXAM TODAY: LEONARD LE DURAL SIGNS: POSITIVE LEONARD R > L. Lumbar mvmt loss: flex - MIN WITH DIFFICULTY RETURNING TO UPRIGHT. ext - NT B SG - MOD TO GIOVANNA - WITH C/O LEONARD LBP R>L PATIENT DENIES INCREASED BACK PAIN WITH LUMBAR ROM TESTING ALL PLANES TODAY. Core strength: POOR Palpation: NO ACUTE TENDERNESS OF SPINE WITH LIGHT PALPATION. PATIENT REPORTS IT HURTS WHETHER I AM PUSHING ON IT OR NOT. Plan Plan Plan: *NO USE OF R UE DUE TO RECENT SURGERY AND STILL IN PT AT [facility] FOR IT* *UNREPAIRED L SHLD ROTATOR CUFF TEAR PER PATIENT REPORT* *SEIZURE DISORDER* *NO LUMBAR EXTENSION* START SLOW AND PROGRESS PER POC TOLERATED AQUATIC THERAPY FOR PAIN RELIEF AND DLS WITH NEUTRAL SPINE ONLY. LEONARD LE ROM, STRETCHING AND STRENGTHENING. HEP INSTRUCTION. Balance/Gait/Functional tests Balance/Special Test Scores Oswestry Low Back Score: 25 Goals Goals Goal 1:: DECREASE C/O BACK AND LE SX'S. Goal Time Frame: 4-6 Weeks Goal Progress: Not Progressing Goal 2:: IMPROVE PERSONAL CARE, LIFTING, WALKING, SITTING, STANDING, SLEEP, SOCIAL LIFE, TRAVEL AND WORK/HOMEMAKING FUNCTION. Goal Time Frame: 4-6 Weeks Goal Progress: Not Progressing Goal 3:: INSTRUCT IN PROPHYLAXIS Goal Time Frame: 4-6 Weeks Goal Progress: Questionable Anticipated Interventions Anticipated Interventions Patient/Client Instruction: Educate patient on: Condition, Plan of Care and Risk Factors For the Purpose of:: To improve self management Therapeutic Exercise to Include: Strength training, Body mechanics, Postural training, Flexibilty training, Neuromotor development, In an aquatic setting and Dynamic Lumbar Stabilization For the Purpose of:: To decrease pain, To increase ROM, To improve muscle performance and motor function, To improve performance and independence with ADL's and To improve ability of physical actions for home/community/work/leisure Re-Evaluation Ending Re-evaluation ending: Please do not hesitate to contact me at [phone] by phone or if you have questions or concerns regarding this new plan of care! Sincerely, Gina Rodriguez, PT, Cert MDT
--- NOTE | 2023-02-27 09:09 | HP.PT.NRP ---
Patient Information Patient Information: JUDIE STANLEY was seen in my office for initial evaluation on 10/14/22. The following Plan of Care was established for this patient: POC Established Initial Frequency: 2-3x /Week Initial Duration: 4-6 Weeks Anticipated Interventions Patient/Client Instruction: Educate patient on: Condition, Plan of Care and Risk Factors For the Purpose of:: To improve self management Therapeutic Exercise to Include: Strength training, Body mechanics, Postural training, Flexibilty training, Neuromotor development, In an aquatic setting and Dynamic Lumbar Stabilization For the Purpose of:: To decrease pain, To increase ROM, To improve muscle performance and motor function, To improve performance and independence with ADL's and To improve ability of physical actions for home/community/work/leisure Last Seen Last Seen: This patient was last seen in our office 12/11/22. Pertinent comments regarding their Physical therapy will appear below: This patient has not returned to Physical Therapy and is appropriate to return to MD for further follow-up as needed. At this point I will be discontinuing this patient from physical therapy. I would be happy to see this patient again in the future if found appropriate by the physician. Thank you! Gina Rodriguez, PT, Cert MDT Balance/Gait/Functional tests Balance/Special Test Scores Oswestry Low Back Score: 25
== END 2022-12-11 19:00 | disposition home or self-care (01) ==
LOC: PT 10:00
PROVIDERS: PCP Student in an Organized Health Care Education/Training Program; Referring Provider Nurse Practitioner Acute Care; Visit Provider Nurse Practitioner Acute Care
DX: M51.37 Other intervertebral disc degeneration, lumbosacral region (principal); M46.96 Unspecified inflammatory spondylopathy, lumbar region; M54.17 Radiculopathy, lumbosacral region; M47.817 Spondylosis without myelopathy or radiculopathy, lumbosacral region; M43.16 Spondylolisthesis, lumbar region
CPT/HCPCS: 97112; 97113; 97162; 97164

== ENCOUNTER 2023-06-18 11:00 | Outpatient (RCR) | payer MEDICAID, SELFPAY ==
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
--- NOTE | 2023-06-18 11:59 | HP.PTDCSUM ---
Discharge Summary D/C summary: It has been my pleasure to treat JUDIE STANLEY referred by JAN BROOKS, with the diagnosis of LUMBAR STENOSIS,02/16/23 S/P L DISCECTOMY & EXTREME FUSION for a total of 21 visit(s). Discharge Date: 06/18/23 Please see the following information for a summary of their discharge status. Subjective Subjective: I FEEL I HAVE IMPROVED TREMENDOUSLY . PATIENT REPORTS SHE HAD GOT TO THE POINT WHERE SHE COULDN'T GET OUT OF BED BEFORE SURGERY. REPORTS COMPLIANCE WITH HEP. STATES SHE IS ABLE TO DO ALL OF HER EX'S WITH THE PURPLE BAND NOW. MULTIPLE UPCOMING UNRELATED PROCEEDURES UPCOMING: JUN 22 2022 VEIN SURGERY JUL 06 2022 FINGER SURGERY JUL 12 2022 NECK CYST REMOVAL BY DERMATOLOGY X 2. AUG 04 2022 - BACK SURGERY FOLLOW UP WITH DR. YESI KUHN. PATIENT REPORTS HER CYSTS ARE REALLY BAD AND SHE STARTED HAVING THEM AFTER SHOULDER SURGERY. SHE STATES SHE THINKS HER IMMUNE SYSTEM JUST CAN'T KEEP UP. PATIENT REPORTS SHE PLANS TO CONTINUE TO WALK FOR EXERCISE AT THE [facility] AND USE THERE WEIGHT MACHINES. I FEEL LIKE I HAVE TURNED THE CORNER WITH MY BACK . SHE REPORTS SHE IS ACTIVE DURING THE DAY AND THE MORE ACTIVE SHE IS THE BETTER SHE RESTS AT NIGHT. STATES SHE ORGANIZED ALL OF THEIR LORA DECROATIONS YESTERDAY. TAKING GABAPENTIN MORNING AND NIGHT. MUSCLE RELAXER IN EVENING NEEDED BUT NOT DAILY AND OXICODONE NEEDED BUT NOT DAILY PER PATIENT REPORT. Pain LOW BACK: Pain Intensity (Out of 10): 2 L THIGH: Pain Intensity (Out of 10): 4 LLE BELOW KNEE: Pain Intensity (Out of 10): 0 Overall Improvement % Improvement: 85 Objective Objective/Function: PATIENT WAS SEEN TODAY FOR RE-ASSESSMENT OF PROGRESS TOWARD THE SET PT GOALS AND THE NEED FOR FURTHER PHYSICAL THERAPY VS READINESS FOR DISCHARGE. ALL GOALS HAVE BEEN MET AND PATINET IS INDEP WITH A HEP. UPON EXAM TODAY: SENSATION: HYPERSENSATIVITY L ANTERIOR AND LATERAL THIGH COMPARED TO R WITH LIGHT TOUCH TESTING BUT OTHERWISE NOT PAINFUL. PATIENT REPORTS IT USE TO BE HER WHOLE LEG BUT NOW IT IS JUST PART OF HER THIGH. Motor deficit: LEONARD LE'S 5/5. Dural Signs: NEGATIVE LEONARD LE'S. Lumbar mvmt loss: FLEX - NIL EXT - MOD R SG - NIL L SG - NIL PATIENT DENIES INCREASED PAIN WITH LUMBAR ROM TESTING ALL PLANES AND WITH MMT'ING LEONARD LE'S. Core strength: GOOD. Goals Goal 1:: DECREASE C/O LOW BACK AND L LE SX'S BY 25% Goal Progress: Goal Met Goal 2:: IMPROVE PERSONAL CARE, LIFTING, WALKING, SITTING, STANDING, SOCIAL LIFE, TRAVEL AND WORK/HOMEMAKING FUNCTION WITH 5 POINT OSWESTRY SCORE IMPROVEMENT. Goal Progress: Goal Met Goal 3:: PATIENT WILL BE INDEP WITH A HEP FOR FURTHER IMPROVEMENT ONCE FORMAL PHYSICAL THERPAY IS CONCLUDED. Goal Progress: Goal Met Plan Plan: D/C TO INDEP EX AND PHYSICIAN FOLLOW UP NEEDED. PATIENT AGREEABLE. D/C Information d/c sentence: If there are questions or concerns regarding this patient's physical therapy, please feel free to call me at [phone]. Thank you for the referral of this patient. Sincerely, Gina Rodriguez, PT, Cert MDT Balance/Gait/Functional tests Balance/Special Test Scores Oswestry Low Back Score: 17 Improvement % Improvement: 85
== END 2023-06-18 16:42 | disposition home or self-care (01) ==
LOC: PT 11:00
PROVIDERS: PCP Student in an Organized Health Care Education/Training Program
DX: M48.061 Spinal stenosis, lumbar region without neurogenic claudication (principal)
CPT/HCPCS: 97110; 97162; 97164; 97530

== ENCOUNTER 2023-06-30 12:27 | Emergency (ER) | payer MEDICAID, SELFPAY ==
[2023-06-30 12:28] VITALS: BP 135/61; PULSE 72; RESP 16; O2SAT 98
[2023-06-30 12:29] VITALS: BP 153/94; PULSE 84; RESP 14; TEMP 36.4; O2SAT 94; BMI 23.8
--- NOTE | 2023-06-30 13:40 | RAD_ITS ---
STUDY: X-RAY - LUMBAR SPINE REASON FOR EXAM: Female, 48 years old. Follow due to a syncopal episode. TECHNIQUE: 2 view(s) of the lumbar spine were obtained. COMPARISON: Comparison is made with prior study dated October 13, 2017. FINDINGS: Normal lumbar lordosis. There is no substantial scoliosis. There is a normal alignment of the vertebrae. Normal vertebral bodies and endplates. Normal disc space heights. The patient is status post screw and valorie fixation at the L4-L5 level with prosthetic disc. Prior cholecystectomy. ESSURE devices are seen in the pelvis. RAD/Lumbar Spine 2 or 3 Views IMPRESSION: Prior fusion at the L4-L5 level. No acute abnormality is seen. Electronically Signed: Truong Lam MD at 15:00 EST ,
--- NOTE | 2023-06-30 13:40 | RAD_ITS ---
STUDY: X-RAY - NASAL BONES REASON FOR EXAM: Female, 48 years old. Nasal injury. TECHNIQUE: 3 view(s) of the nasal bones. COMPARISON: None. FINDINGS: Normal nasal bones. Normal anterior nasal spine. There is no demonstrated soft tissue swelling. The remaining visualized osseous structures are normal. Normal visualized paranasal sinuses. RAD/Nasal Bones min 3 Views IMPRESSION: Normal x-ray examination of the nasal bones. Electronically Signed: Truong Lam MD at 14:59 EST ,
--- NOTE | 2023-06-30 13:40 | CT_ITS ---
STUDY: CT BRAIN WITHOUT CONTRAST REASON FOR EXAM: Female, 48 years old. Syncope, head injury RADIATION DOSAGE (If Supplied By Facility): CTDIvol = ( 44.99 ) mGy, DLP = ( 779.24 ) mGycm TECHNIQUE: Transaxial CT imaging of the brain was performed without administration of intravenous contrast material. Individualized dose optimization techniques were used for this CT. COMPARISON: Comparison is made with prior study dated March 23, 2016. FINDINGS: Normal soft tissue structures. Normal calvarium. Normal size ventricles and extra-axial spaces for the patient''s age. Normal white matter tracts of the cerebral hemispheres. Normal basal ganglia and thalami. Normal brainstem. Normal cerebellum. There is no intracranial hemorrhage. There are no findings of an acute ischemic infarction. Normal visualized paranasal sinuses. CT/Brain/Head without Contrast IMPRESSION: Normal unenhanced CT scan of the brain. Electronically Signed: Truong Lam MD at 14:54 EST ,
--- NOTE | 2023-06-30 13:40 | RAD_ITS ---
STUDY: X-RAY CHEST REASON FOR EXAM: Female, 48 years old. Syncope TECHNIQUE: Single AP portable view of the chest. COMPARISON: None. FINDINGS: EKG electrodes are seen. The lungs are clear and expanded. There is no demonstrated pleural abnormality. Normal size heart. Normal mediastinum and francisco j. Normal visualized pulmonary arteries. Normal visualized aortic arch and descending thoracic aorta. Normal visualized thoracic spine. Normal visualized ribs, clavicles, and shoulders. There is no demonstrated abnormality of the visualized soft tissue structures of the upper abdomen. RAD/Chest 1 View (Portable) IMPRESSION: Normal x-ray examination of the chest. Electronically Signed: Truong Lam MD at 14:58 EST ,
--- NOTE | 2023-06-30 13:43 | EDS_ITS ---
HPI History of Present Illness Chief Complaint: Syncope Detail of Chief Complaint: Syncope Informant: patient Narrative Narrative: Patient presents to the emergency department after a syncopal episode sustained last evening around 3 AM. Patient remembers being in the kitchen to cut an orange. She is not sure how she got to the kitchen or if she was sleepwalking. Patient states that she thinks she put the knife down because it was not on the floor with her but she woke up on the floor. Patient complaining of nasal pain as well as low back pain. She tell me she had surgery on her back in February 2023 and had a lumbar fusion. Patient also has history of seizure disorder but does not think she had a seizure. Patient denies losing control of bowel or bladder. She denies recent illness. Patient also complaining of a headache. [facility] Medical History (Updated 06/30/23 @ 15:[address] Matthew Escalera, ) Alcohol use Anxiety Arthritis Back pain COVID Cyst Easy bruising History of echocardiogram History of edema Injury of back Low iron Marijuana use Non-smoker Normal EEG Pain Seizures Shingles Thyroid disease Varicose vein of leg Wears contact lenses Home Medications levetiracetam 1,000 mg tablet (Keppra) 1,500 mg PO BID 08/20/13 [History Last Taken 11/27/22] levothyroxine 100 mcg tablet 112 mcg PO DAILY 08/20/13 [History Last Taken 11/27/22] clonazepam 0.5 mg disintegrating tablet 0.5 mg PO QHS PRN anxiety 03/23/16 [History Last Taken Unknown] felbamate 600 mg tablet (Felbatol) 1,200 mg PO BID SEIZURE 03/23/16 [History Last Taken 11/27/22] Sleep Drop 1 drp PO/SL QHS 07/30/22 [History Last Taken Unknown] ascorbic acid (vitamin C) 500 mg oral powder packet 1,000 mg PO DAILY 07/30/22 [History Last Taken Unknown] diphenhydramine 25 mg-acetaminophen 500 mg tablet (Tylenol PM Extra Strength) 1 tab PO QHS 07/30/22 [History Last Taken Unknown] cyclobenzaprine 10 mg tablet 10 mg PO HS PRN muscle spasm 10/30/22 [History Last Taken Unknown] oxycodone 5 mg tablet 5 mg PO BID PRN Pain 10/30/22 [History Last Taken Unknown] apple cider vinegar 500 mg tablet 500 mg PO DAILY 06/24/23 [History Last Taken Unknown] cholecalciferol (vitamin D3) 25 mcg (1,000 unit) capsule (Vitamin D3) 25 mcg PO DAILY 06/24/23 [History Last Taken Unknown] doxycycline monohydrate 100 mg capsule 100 mg PO DAILY 06/24/23 [History Last Taken Unknown] food supplemt, lactose-reduced 0.08 gram-1.5 kcal/mL oral liquid (Ensure Plus High Protein) 1.5 ml PO DAILY 06/24/23 [History Last Taken Unknown] gabapentin 300 mg tablet,extended release 24 hr 300 mg PO BID 06/24/23 [History Last Taken Unknown] magnesium 250 mg tablet 250 mg PO QHS 06/24/23 [History Last Taken Unknown] spironolactone 100 mg tablet (Aldactone) 100 mg PO QHS 06/24/23 [History Last Taken Unknown] turmeric 400 mg capsule 400 mg PO DAILY 06/24/23 [History Last Taken Unknown] Allergy/AdvReac Type Severity Reaction Status Date / Time No Known Allergies Allergy Verified 06/30/23 12:29 Family History Mother Cancer breast CHF (congestive heart failure) Father Myocardial infarction Surgical History History of hysteroscopy History of hysteroscopy History of lumbar fusion History of surgery on right wrist Hx laparoscopic cholecystectomy Hx of repair of left rotator cuff Hx of repair of right rotator cuff (~2022) Hx of rotator cuff surgery Social History Smoking Status: Never smoker ROS ROS ED Review of Systems ROS Unobtainable: other Constitutional Constitutional ED: Reports lethargy; Denies chills, fever(s), sweats or weight loss Eyes Eyes: Denies blurry vision, change in vision or diplopia ENT ENT ED: Reports other Details: Nasal pain ; Denies rhinorrhea or sore throat Cardiovascular Cardiovascular: Denies chest pain, orthopnea or racing heartbeat Respiratory/Chest Respiratory/Chest: Denies cough, dyspnea, dyspnea on exertion, orthopnea or sputum Gastrointestinal Gastrointestinal: Denies abdominal pain, diarrhea, nausea or vomiting Genitourinary Genitourinary ED: Denies dysuria, hematuria or urinary frequency Musculoskeletal Musculoskeletal: Reports back pain; Denies arthralgias, myalgias or neck pain Integumentary Denies abscess, Abrasions or rash Neurologic Neurologic: Reports headache(s); Denies weakness Psychiatric Psychiatric: Denies anxiety, depression or suicidal thoughts Endocrine Endocrinology: Denies polydipsia, polyphagia or polyuria Hematologic/Lymphatic Hematologic/Lymphatic: Denies easy bleeding, easy bruising or lymphadenopathy Allergic/Immunologic Allergic/Immunologic ED: Denies mouth swelling, tongue swelling or urticaria EXAM Physical Exam Const Vital Signs: 06/30/23 12:29 06/30/23 12:28 06/30/23 12:28 Temperature 97.5 F L Temperature Source Temporal Pulse Rate 84 72 Respiratory Rate 14 16 Respiratory Effort Normal Respiratory Pattern Normal Blood Pressure 153/94 H 135/61 H Blood Pressure Mean 113 85 Pulse Ox 94 98 Oxygen Delivery Method Room Air Room Air Positive well nourished and well developed General Appearance ED: well developed and NAD HEENT Reports TM's clear and moist mucous membranes HEENT Narrative: Tenderness over the nasal bone. There is mild soft tissue swelling. No septal hematoma. No hemotympanum. normocephalic and atraumatic; Negative for trauma or tenderness Tympanic Membrane ED: Yes TM's clear Eyes PERRL and EOMs intact bilaterally General Eye ED: Negative for pale conjunctiva or scleral icterus Neck no lymphadenopathy, supple and no JVD Neck Narrative: No tenderness over the cervical spine. No bony step-offs noted. Good range of motion. General: Negative for tenderness Chest Wall inspection of chest normal and palpation of chest normal Chest: Negative for tenderness Resp normal respiratory effort and clear to auscultation bilaterally Effort and Inspection: Negative for respiratory distress or pain with movement Auscultation: Negative for rhonchi, wheezes or diminished lung sounds Cardio regular rate, regular rhythm, S1 normal heart sound, S2 normal heart sound and no murmurs Peripheral Pulses: pulses 2+ throughout GI normal to inspection, nondistended, normoactive bowel sounds, soft to palpation, non-tender, non-distended and no masses Back/Spine no CVA tenderness and no thoracic nor lumbar tenderness Back/Spine Narrative: Valuation of the lumbar spine reveals some mild diffuse tenderness palpation over lumbar spine. There are well-healed scars from prior surgery. There is no ecchymosis or bruising noted. Negative straight leg raises. Extremity normal to inspection General Extremety ED: Negative for edema General Extremity: Negative for edema Neuro oriented x3, CN's II-XII intact bilaterally, no sensory deficits noted and gait normal Sensorium / Orientation: awake, alert, oriented to person, oriented to place and oriented to time Motor Exam: strength 5/5 throughout and strength abnormal Psych mental status grossly normal Skin no rashes or lesions noted and no wounds MDM MDM MDM Narrative Medical decision making narrative: Patient presents with syncopal episode that occurred last evening. In the differential would be cardiac dysrhythmia which I feel is unlikely versus vasovagal episode or possible seizure activity although patient states this is not typical of her seizures. IV line established. EKG obtained on arrival showed sinus rhythm with rate of 63 bpm with no acute ST segment changes. CBC with differential count of 5.2 with hemoglobin 13.5 and platelet count of 320. Chemistries unremarkable. D-dimer was normal is less than 0.27. BUN and creatinine were normal. Troponin normal. Urinalysis was normal. CT scan of the brain without contrast was unremarkable. Patient had chest x-ray that showed nothing acute. Patient had lumbar spine x-rays that were negative for fracture. X-rays of the nasal bones were negative for fracture. Lab Data Attestation: I reviewed the patient's lab results. Labs: Laboratory Results - last 24 hr 06/30/23 06/30/23 13:10 14:15 WBC 5.2 RBC 4.53 Hgb 13.5 Hct 40.5 MCV 89.4 MCH 29.8 MCHC 33.3 RDW Std Deviation 42.7 RDW Coeff of Jesus 13.0 Plt Count 320 MPV 9.1 Immature Gran % (Auto) 0.200 Neut % (Auto) 56.3 Lymph % (Auto) 35.6 [place] % (Auto) 7.3 Eos % (Auto) 0.2 Baso % (Auto) 0.4 Absolute Neuts (auto) 2.9 Absolute Lymphs (auto) 1.85 Nucleated RBC % 0 D-Dimer Quant (PE/DVT) < 0.27 L Sodium 140 Potassium 3.8 Chloride 106 Carbon Dioxide 28.0 Anion Gap 6 BUN 11 Creatinine 0.78 Estim Creat Clear Calc 80.78 Est GFR (MDRD) Af Amer 101 Est GFR (MDRD) Non-Af 84 BUN/Creatinine Ratio 14.2 Glucose 93 Calcium 9.9 Troponin I High Sens 4 Urine Color Yellow Urine Clarity Clear Urine pH 7.0 Ur Specific [place] 1.010 Urine Protein Negative Urine Glucose (UA) Normal Urine Ketones Negative Urine Occult Blood Negative Urine Nitrite Negative Urine Bilirubin Negative Urine Urobilinogen Normal Ur Leukocyte Esterase 25 H Urine RBC 0 SEEN Urine WBC 0-5 SEEN Ur Squamous Epith Cells 0-5 SEEN Urine Bacteria 0 SEEN Urine Mucus 0 SEEN Radiography Diagnostic Testing: Clinical Impression(s) from Imaging Studies Brain CT 06/30/23 13:40 IMPRESSION: Normal unenhanced CT scan of the brain. Electronically Signed: Truong Lam MD at 14:54 EST , Chest X-Ray 06/30/23 13:40 IMPRESSION: Normal x-ray examination of the chest. Electronically Signed: Truong Lam MD at 14:58 EST , Lumbar Spine X-Ray 06/30/23 13:40 IMPRESSION: Prior fusion at the L4-L5 level. No acute abnormality is seen. Electronically Signed: Truong Lam MD at 15:00 EST , Nasal Bones X-Ray 06/30/23 13:40 IMPRESSION: Normal x-ray examination of the nasal bones. Electronically Signed: Truong Lam MD at 14:59 EST , 1 view chest x-ray obtained interpreted by myself as no evidence of rib fracture or pneumothorax or acute disease process. Radiology in agreement. Three-view x-rays of lumbar spine obtained interpreted by myself as no evidence of fracture or other abnormality. She had prior fusion at L4-[address] Radiology in agreement. Three-view x-rays of nasal bones obtained interpreted by myself as no evidence of fracture. Radiology in agreement. EKG Initial EKG: Attestation: I personally reviewed and interpreted this EKG as follows: Comments: Sinus rhythm with ventricular rate of 63 bpm with no acute ST segment changes Discharge Plan Triage Chief Complaint: Syncope Other Complaint: Back ED Provider: Matthew Escalera Dx/Rx/DC Orders Clinical Impression: Lumbar strain, Back contusion, Syncope, Contusion of nose Instructions: ED Back Contusion, ED Facial Contusion, ED Fainting, Uncertain Cause Prescriptions: No Action cyclobenzaprine 10 mg tablet 10 mg PO HS PRN (Reason: muscle spasm) oxycodone 5 mg tablet 5 mg PO BID PRN (Reason: Pain) levothyroxine 100 MCG tablet 112 mcg PO DAILY Patient Comments: thyroid levetiracetam [Keppra] 1,000 MG tablet 1,500 mg PO BID Patient Comments: seizure felbamate [Felbatol] 600 MG tablet 1,200 mg PO BID Patient Comments: seizures clonazepam 0.5 MG tablet,disintegrating 0.5 mg PO QHS PRN (Reason: anxiety) Patient Comments: anxiety diphenhydramine-acetaminophen [Tylenol PM Extra Strength] 25-500 mg Tablet 1 tab PO QHS Rx Instructions: administer while awake ascorbic acid (vitamin C) 500 mg Powder In Packet 1,000 mg PO DAILY Sleep Drop 1 drp PO/SL QHS cholecalciferol (vitamin D3) [Vitamin D3] 25 mcg (1,000 unit) capsule 25 mcg PO DAILY apple cider vinegar 500 mg tablet 500 mg PO DAILY magnesium 250 mg tablet 250 mg PO QHS turmeric 400 mg capsule 400 mg PO DAILY spironolactone [Aldactone] 100 mg tablet 100 mg PO QHS gabapentin 300 mg tablet extended release 24 hr 300 mg PO BID doxycycline monohydrate 100 mg capsule 100 mg PO DAILY Ensure Plus High Protein 0.08 gram-1.5 kcal/mL liquid 1.5 ml PO DAILY Primary Care Provider: Thierry Wiley Referrals: Thierry Wiley DO [Primary Care Provider] - 3-5 Days Disposition Disposition: Home, Self Care
[2023-06-30 13:54] LABS: Absolute Lymphocyte Count 1.85 X10^3/uL (0.83-4.51); Absolute Neutrophil Count 2.9 X10^3/uL (2.0-7.7); Basophil# 0.02 X10^3/uL; Basophil% 0.4 % (0-1); Eosinophil# 0.01 X10^3/uL; Eosinophils% 0.2 % (0-5); Hematocrit 40.5 % (37-47); Hemoglobin 13.5 g/dL (12.0-15.0); Lymphocyte # 1.85 X10^3/ul (0.83-4.51); Lymphocyte % 35.6 % (19-41); Mean Corp Hgb Conc 33.3 g/dL (32-36); Mean Corpuscular Hgb 29.8 pg (27.0-32.0); Mean Corpuscular Volume 89.4 fL (81-99); Mean Platelet Vol. 9.1 fl (6.2-12.0); Monocyte# 0.38 X10^3/uL; Monocyte% 7.3 % (0-10); NRBC Flagged by Analyzer 0 % (0-5); Neutrophil # 2.92 X10^3/uL (2.7-7.7); Neutrophil % 56.3 % (47-70); Platelet Count 320 K/mm3 (150-450); RBC Distribution Width SD 42.7 fl (35.1-43.9); Red Blood Count 4.53 M/mm3 (4.2-5.4); White Blood Count 5.2 K/mm3 (4.4-11.0)
[2023-06-30 14:02] LABS: D-Dimer Quantitative (DVT/PE) < 0.27 FEU/ug/m (0.27-0.49)
[2023-06-30] MEDS: 0.9% Normal Saline (1000mL) 1,000 ML 150 ML IV (14:12)
[2023-06-30 14:17] LABS: Anion Gap 6 (5-15); BUN 11 mg/dL (7-18); BUN/Creat Ratio 14.2 RATIO (10-20); Calcium,Total 9.9 mg/dL (8.5-10.1); Chloride 106 mmol/L (98-107); Creatinine, Serum 0.78 mg/dL (0.55-1.02); EST Glomerular Filtration Rate 84 mL/min (>60); Est Glom Filt Rate - Afr Amer 101 mL/min (>60); Estimated Creatinine Clearance 80.78 ml/min; Glucose 93 mg/dL (74-106); Potassium 3.8 mmol/L (3.5-5.1); Sodium Level 140 mmol/L (136-145); Troponin-I HS 4 pg/mL (3.0-54.0)
[2023-06-30 14:19] LABS: Bacteria 0 SEEN /hpf (None Seen); Mucous, Urine 0 SEEN /hpf (<or=2+); Red Blood Cells-Urine 0 SEEN /hpf (0-5)
[2023-06-30 14:21] LABS: Color, Urine Yellow (Yellow); Glucose, Dipstick Normal (Normal); Ketone-Dipstick Negative (Negative); Leukocyte Esterase-Dipstick 25 /ul (Negative); Nitrite-Dipstick Negative (Negative); Occult Blood-Urine Negative /ul (Negative); Protein-Dipstick Negative (Negative); Urine Bilirubin Dipstick Negative (Negative); Urine Clarity Clear (Clear); Urine Urobilinogen Normal (Normal)
[2023-06-30 14:28] VITALS: RESP 16
[2023-06-30 14:28] LABS: Squamous Epithelial Cells - UA 0-5 SEEN /hpf (5-10); White Blood Cells 0-5 SEEN /hpf (0-5)
[2023-06-30] MEDS: Ketorolac 15 MG/ML Vial IV (14:57)
[2023-06-30 15:29] VITALS: PULSE 70; RESP 18; O2SAT 95
[2023-06-30 15:33] VITALS: BP 143/95; PULSE 73; RESP 18; O2SAT 100
== END 2023-06-30 15:40 | disposition home or self-care (01) ==
PROVIDERS: Emergency Provider Emergency Medicine; PCP Student in an Organized Health Care Education/Training Program; Visit Provider Emergency Medicine
DX: R55 Syncope and collapse (principal); R56.9 Unspecified convulsions; S39.012A Strain of muscle, fascia and tendon of lower back, initial encounter; S00.33XA Contusion of nose, initial encounter; Z79.899 Other long term (current) drug therapy; F41.9 Anxiety disorder, unspecified; Z90.49 Acquired absence of other specified parts of digestive tract
CPT/HCPCS: 70160; 70450; 71045; 72100; 80048; 81001; 84484; 85025; 85379; 93005; 96361; 96374; 99285; J7030; A4216

== ENCOUNTER 2023-07-06 05:58 | Day surgery (SDC) | payer MEDICAID, SELFPAY ==
[2023-07-06] VITALS (7 sets, daily range): BP systolic 91–121; BP diastolic 69–82; PULSE 53–68; RESP 14–16; TEMP 36.3–36.6; O2SAT 98–100; BMI 23.8
--- OUTSIDE RECORDS SUMMARY | 2023-07-06 06:20 | XMS RPT_ITS | CCD ---
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 Name Role Phone Saurabh HAN Thierry Denia Primary Care Provider AMADEO VERAS Referring Unava ilable WILEY, THIERRY L Primary Care Unavailable Wiely DO Thierry Denia Primary Care Provider [phone] SISI SALMERON Referring Unavailable WILEY, THIERRY L Primary Care Unavailable WILEY, THIERRY L Primary Care Unavailable SELF Referring Unavailable WILEY, THIERRY L Primary Care Unavailable JENNIE WALLS Referring Unavail able WILEY, THIERRY L Primary Care Unavailable WILEY, THIERRY L Primary Care Unavailable WILEY, THIERRY L Referring Unavailable WILEY, THIERRY L Primary Care Unavailable YUSRA ALFARO Referring Unavailable WILEY, THIERRY L Attending Unavailable WILEY, THIERRY L Primary Care Unavailable WILEY, THIERRY L Primary Care Unavailable WILEY, THIERRY L Referring Unavailable WILEY, THIERRY L Primary Care Unavailable WILEY, THIERRY L Primary Care Unavailable KEYANNA MEZA Referring Unavailable AUTUMN VILLANUEVA Attending Unavailable WILEY, THIERRY L Primary Care Unavailable WILEY, THIERRY L Primary Care Unavailable AMADEO VERAS Referring Unava ilable WILEY, THIERRY Denia Primary Care Unavailable GRETA MOULTON Attending Unavailable WILEY, THIERRY L Primary Care Unavailable WILEY, THIERRY L Referring Unavailable WILEY, THIERRY L Primary Care Unavailable HODAN COVINGTON Attending Unavailab le WILEY, THIERRY Denia Primary Care Unavailable HODAN COVINGTON Referring Unavailab le WILEY, THIERRY Denia Primary Care Unavailable AMADEO VERAS Referring Unava ilable LOPEZ, CHRISTAL Attending Unavailable WILEY, THIERRY L Primary Care Unavailable WILEY, THIERRY L Primary Care Unavailable WILEY, THIERRY L Attending Unavailable WILEY, THIERRY L Primary Care Unavailable GRETA MOULTON Referring Unavailable WILEY, THIERRY L Primary Care Unavailable GRETA MOULTON Referring Unavailable GRETA MOULTON Attending Unavailable WILEY, THIERRY L Primary Care Unavailable WILEY, THIERRY L Primary Care Unavailable WILEY, THIERRY L Referring Unavailable WILEY, THIERRY L Primary Care Unavailable DARRON ALCANTARA Attending Unavailable GER DIXON Referring Unavailable WILEY, THIERRY L Primary Care Unavailable WILEY, THIERRY L Primary Care Unavailable YUSRA ALFARO Referring Unavailable WILEY, THIERRY L Attending Unavailable WILEY, THIERRY L Primary Care Unavailable WILEY, THIERRY L Primary Care Unavailable WILEY, THIERRY L Referring Unavailable WILEY, THIERRY L Primary Care Unavailable WILEY, THIERRY L Primary Care Unavailable JENNIE WALLS Attending Unavail able WILEY, THIERRY L Primary Care Unavailable WILEY, THIERRY L Referring Unavailable DAWN HORTON Attending Unavailab le Medications Current Medications Medication Drug Class(es) Dates Sig (Normalized) Sig (Original) cetirizine hydrochloride 10 mg oral tablet (2 sources) Histamine-1 Receptor Antagonist Start: 12-10-2022 End: 12-24-2022 take 1 tablet by mouth once daily cetirizine (ZYRTEC) 10 mg tablet Take 1 tablet by mouth once daily for 14 days. 14 tablet 0 12/10/2022 12/24/2022 Active Completed/Discontinued Medications Medication Drug Class(es) Dates Sig (Normalized) Sig (Original) Acetaminophen / diphenhydrAMINE (8 sources) Histamine-1 Receptor Antagonist acetaminophen/diphe nhydramine (TYLENOL PM ORAL) Take by mouth. 0 Active Problems Active Problems Problem Classification Problem Date Documented Date Episodic/Chronic Allergic reactions (2 sources) Allergic contact dermatitis caused by plant material; Translations: [Allergic contact dermatitis due to plants, except food] Episodic Blindness and vision defects (5 sources) Bilateral myopia of eyes; Translations: [Myopia, bilateral] Episodic Complications of surgical procedures or medical care (1 source) Postoperative wound infection-superficial ; Translations: [Infection following a procedure, superficial incisional surgical site, initial encounter] 03-30-2023 Episodic Disorders of lipid metabolism (20 sources) Dyslipidemia; Translations: [Hyperlipidemia, unspecified] Onset: 09-17-2020 09-17-2020 Chronic Epilepsy; convulsions (20 sources) Refractory generalized convulsive epilepsy; Translations: [Generalized idiopathic epilepsy and epileptic syndromes, intractable, without status epilepticus] Onset: 05-17-2014 11-21-2019 Chronic Genitourinary symptoms and ill-defined conditions (2 sources) Genuine stress incontinence; Translations: [Stress incontinence (female) (male)] Onset: 06-03-2023 05-08-2023 Chronic Inflammation; infection of eye (except that caused by tuberculosis or sexually transmitteddisease) (3 sources) Bilateral punctate keratitis of eyes; Translations: [Punctate keratitis, bilateral] Chronic Mood disorders (20 sources) Mild depression; Translations: [Mild depression] Onset: 12-20-2014 12-20-2014 Chronic Nutritional deficiencies (20 sources) Vitamin D deficiency; Translations: [Vitamin D deficiency, unspecified] Onset: 02-05-2022 Chronic Other diseases of bladder and urethra (1 source) Spasm of bladder; Translations: [Other specified disorders of bladder] 05-08-2023 Chronic Other injuries and conditions due to external causes (1 source) H/O: vertebral fracture; Translations: [Personal history of (healed) traumatic fracture] 10-21-2022 Episodic Other lower respiratory disease (1 source) Pleurodynia; Translations: [Rib pain on right side] Onset: 07-01-2023 Episodic Other nervous system disorders (2 sources) Other chronic pain; Translations: [Chronic bilateral low back pain with bilateral sciatica] Onset: 10-27-2016 Chronic Other nervous system disorders (1 source) Paresthesia; Translations: [Paresthesia of skin] 10-21-2022 Episodic Other screening for suspected conditions (not mental disorders or infectious disease) (8 sources) Patient encounter status; Translations: [Encounter for screening for malignant neoplasm of colon] Onset: 12-04-2022 Episodic Other skin disorders (1 source) Localized swelling, mass and lump, head; Translations: [Nasal swelling] Onset: 07-01-2023 Episodic Other upper respiratory disease (1 source) Other specified disorders of nose and nasal sinuses; Translations: [Nasal pain] Onset: 07-01-2023 Episodic Residual codes; unclassified (1 source) History of operative procedure on lumbar spinal structure; Translations: [Other specified postprocedural states] 03-30-2023 Episodic Spondylosis; intervertebral disc disorders; other back problems (20 sources) Arthropathy of lumbar facet joint; Translations: [Spondylosis without myelopathy or radiculopathy, lumbar region] Onset: 10-27-2016 10-27-2016 Chronic Syncope (1 source) Syncope and collapse; Translations: [Syncope and collapse] Onset: 07-01-2023 Episodic Thyroid disorders (20 sources) Goiter; Translations: [Nontoxic goiter, unspecified] Onset: 05-17-2012 09-17-2020 Chronic Unclassified (1 source) OPENED IN ERROR 12-15-2022 Unclassified (1 source) Acute midline low back pain without sciatica; Translations: [Acute midline low back pain without sciatica] Onset: 07-01-2023 Unclassified (1 source) Chronic bilateral low back pain without sciatica; Translations: [Chronic bilateral low back pain without sciatica] Onset: 10-27-2016 Urinary tract infections (1 source) Acute cystitis; Translations: [Acute cystitis without hematuria] 05-08-2023 Episodic Past or Other Problems Problem Classification Problem Date Documented Da te Episodic/Chronic Malaise and fatigue (20 sources) Fatigue; Translations: [Other fatigue] Onset: 02-05-2022 Episodic Other connective tissue disease (20 sources) Digital mucous cyst; Translations: [Ganglion, unspecified hand] Onset: 10-28-2012 10-28-2012 Episodic Other connective tissue disease (1 source) Pain in right forearm; Translations: [Pain of right forearm] Onset: 12-05-2022 Episodic Other infections; including parasitic (20 sources) Personal history of other infectious and parasitic diseases; Translations: [History of COVID-19] Onset: 02-05-2022 Episodic Other injuries and conditions due to external causes (1 source) Personal history of (healed) traumatic fracture; Translations: [History of compression fracture of spine] Onset: 10-21-2022 Episodic Other nervous system disorders (1 source) Paresthesia of skin; Translations: [Paresthesia of skin] Onset: 10-21-2022 Episodic Spondylosis; intervertebral disc disorders; other back problems (20 sources) Chronic low back pain; Translations: [Chronic bilateral low back pain without sciatica] Onset: 10-27-2016 10-27-2016 Episodic Varicose veins of lower extremity (4 sources) Pain co-occurrent and due to varicose veins of right leg; Translations: [Varicose veins of right lower extremity with pain] Onset: 09-24-2022 Episodic Viral infection (20 sources) Verruca vulgaris; Translations: [Other viral warts] Onset: 02-05-2022 Episodic Results Test Name Value Interpretation Reference Range Facil ity Vital Signs Date Time Vital Sign Value Performing Clinician Darlyn yee 05-08-2023 11:28-0500 Body weight 68.95 kg Darron Abbi BOILER ATTENDANT.BACON DE RINDER Work Phone: [facility] 05-08-2023 11:28-0500 Diastolic blood pressure 84 mm[Hg] Darron Abbi BOILER ATTENDANT.BACON DE RINDER Work Phone: [facility] 05-08-2023 11:28-0500 Heart rate 80 /min Darron Abbi BOILER ATTENDANT.BACON DE RINDER Work Phone: [facility] 05-08-2023 11:28-0500 Respiratory rate 16 /min Darron Abbi BOILER ATTENDANT.BACON DE RINDER Work Phone: [facility] 05-08-2023 11:28-0500 Systolic blood pressure 122 mm[Hg] Darron Abbi BOILER ATTENDANT.BACON DE RINDER Work Phone: [facility] 03-30-2023 18:08-0400 Body temperature 96.3 [degF] Michi Menard MD Work Phone: [facility] 03-30-2023 18:08-0400 Body weight 69.58 kg Michi Menard MD Work Phone: [facility] 03-30-2023 18:08-0400 Diastolic blood pressure 92 mm[Hg] Michi Menard MD Work Phone: [facility] 03-30-2023 18:08-0400 Heart rate 87 /min Michi Menard MD Work Phone: [facility] 03-30-2023 18:08-0400 Respiratory rate 21 /min Michi Menard MD Work Phone: [facility] 03-30-2023 18:08-0400 SaO2% (BldA) [Mass fraction] 99 % Michi Menard MD Work Phone: [facility] 03-30-2023 18:08-0400 Systolic blood pressure 138 mm[Hg] Michi Menard MD Work Phone: [facility] 03-10-2023 10:08-0400 Body weight 68.4 kg Greta Moulton DO Work Phone: [facility] 03-10-2023 10:08-0400 Diastolic blood pressure 87 mm[Hg] Greta Moulton DO Work Phone: [facility] 03-10-2023 10:08-0400 Heart rate 103 /min Greta Moulton DO Work Phone: [facility] 03-10-2023 10:08-0400 SaO2% (BldA) [Mass fraction] 97 % Greta Moulton DO Work Phone: [facility] 03-10-2023 10:08-0400 Systolic blood pressure 128 mm[Hg] Greta Moulton DO Work Phone: [facility] 12-31-2022 18:09-0400 Body temperature 97.9 [degF] Prateek Vitale BOILER ATTENDANT.BACON DE RINDER Work Phone: [facility] 12-31-2022 18:09-0400 Body weight 66.22 kg Prateek Vitale BOILER ATTENDANT.BACON DE RINDER Work Phone: [facility] 12-31-2022 18:09-0400 Diastolic blood pressure 66 mm[Hg] Prateek Vitale BOILER ATTENDANT.BACON DE RINDER Work Phone: [facility] 12-31-2022 18:09-0400 Heart rate 88 /min Prateek Vitale BOILER ATTENDANT.BACON DE RINDER Work Phone: [facility] 12-31-2022 18:09-0400 Respiratory rate 16 /min Prateek Iam BOILER ATTENDANT.BACON DE RINDER Work Phone: [facility] 12-31-2022 18:09-0400 SaO2% (BldA) [Mass fraction] 100 % Prateek Iam BOILER ATTENDANT.BACON DE RINDER Work Phone: [facility] 12-31-2022 18:09-0400 Systolic blood pressure 122 mm[Hg] Prateek Iam BOILER ATTENDANT.BACON DE RINDER Work Phone: [facility] 12-10-2022 19:41-0400 Body temperature 97.5 [degF] Hortencia Athy PA-C Work Phone: [facility] 12-10-2022 19:41-0400 Body weight 66.32 kg Hortencia Athy PA-C Work Phone: [facility] 12-10-2022 19:41-0400 Diastolic blood pressure 86 mm[Hg] Hortencia Athy PA-C Work Phone: [facility] 12-10-2022 19:41-0400 Heart rate 92 /min Hortencia Athy PA-C Work Phone: [facility] 12-10-2022 19:41-0400 Respiratory rate 18 /min Hortencia Athy PA-C Work Phone: [facility] 12-10-2022 19:41-0400 SaO2% (BldA) [Mass fraction] 96 % Hortencia Athy PA-C Work Phone: [facility] 12-10-2022 19:41-0400 Systolic blood pressure 144 mm[Hg] Hortencia Athy PA-C Work Phone: [facility] 09-24-2022 15:03-0400 Body weight 66.5 kg Christaltyler Marmolejoson BOILER ATTENDANT.BACON DE RINDER Work Phone: [facility] 09-24-2022 15:03-0400 Diastolic blood pressure 62 mm[Hg] Christal Lopez BOILER ATTENDANT.BACON DE RINDER Work Phone: [facility] 09-24-2022 15:03-0400 Heart rate 72 /min Christal Lopez BOILER ATTENDANT.BACON DE RINDER Work Phone: [facility] 09-24-2022 15:03-0400 Respiratory rate 12 /min Christal Lopez BOILER ATTENDANT.BACON DE RINDER Work Phone: [facility] 09-24-2022 15:03-0400 Systolic blood pressure 130 mm[Hg] Christal Lopez BOILER ATTENDANT.BACON DE RINDER Work Phone: [facility] 02-05-2022 13:33-0400 Body height 166.5 cm Thierry Wiley DO Work Phone: [facility] 02-05-2022 13:33-0400 Body temperature 96.49 [degF] Thierry Wiley DO Work Phone: [facility] 02-05-2022 13:33-0400 Body weight 62.6 kg Thierry Wiley DO Work Phone: [facility] 02-05-2022 13:33-0400 Diastolic blood pressure 70 mm[Hg] Thierry Wiley DO Work Phone: [facility] 02-05-2022 13:33-0400 Heart rate 64 /min Thierry Wiley DO Work Phone: [facility] 02-05-2022 13:33-0400 Respiratory rate 16 /min Thierry Wiley DO Work Phone: [facility] 02-05-2022 13:33-0400 Systolic blood pressure 110 mm[Hg] Thierry Wiley DO Work Phone: [facility] 01-27-2022 11:22-0400 Body height 167.6 cm Jennie Childress MD Work Phone: [facility] 01-27-2022 11:22-0400 Body weight 61.69 kg Jennie Childress MD Work Phone: [facility] 01-27-2022 11:22-0400 Diastolic blood pressure 72 mm[Hg] Jennie Childress MD Work Phone: [facility] 01-27-2022 11:22-0400 Systolic blood pressure 112 mm[Hg] Jennie Childress MD Work Phone: [facility] 12-18-2021 09:32-0400 Body height 170.2 cm Lourdes Amira PA-C Work Phone: [facility] 12-18-2021 09:32-0400 Body temperature 97.5 [degF] Lourdes [place] Head PA-C Work Phone: [facility] 12-18-2021 09:32-0400 Body weight 60.33 kg Lourdes Amira PA-C Work Phone: [facility] 12-18-2021 09:32-0400 Diastolic blood pressure 66 mm[Hg] Lourdes Amira PA-C Work Phone: [facility] 12-18-2021 09:32-0400 Heart rate 74 /min Lourdes [place] PA-C Work Phone: [facility] 12-18-2021 09:32-0400 SaO2% (BldA) [Mass fraction] 100 % Lourdes Amira PA-C Work Phone: [facility] 12-18-2021 09:32-0400 Systolic blood pressure 110 mm[Hg] Lourdes [place] PA-C Work Phone: [facility] Encounters Encounter Date Encounter Type Care Provider Facility Start: 07-01-2023 End: 07-01-2023 ambulatory THIERRY L WILEY Facility:[facility] Start: 07-01-2023 End: 07-02-2023 ambulatory THIERRY L WILEY Facility:[facility] Start: 06-19-2023 End: 06-20-2023 ambulatory THIERRY L WILEY Facility:[facility] Start: 06-03-2023 End: 06-04-2023 ambulatory THIERRY L WILEY Facility:[facility] Start: 06-02-2023 End: 06-03-2023 ambulatory THIERRY L WILEY Facility:[facility] Start: 06-02-2023 End: 06-02-2023 ambulatory THIERRY L WILEY Facility:[facility] Start: 05-27-2023 End: 05-28-2023 ambulatory THIERRY L WILEY Facility:[facility] Start: 05-25-2023 End: 05-26-2023 ambulatory GER DIXON Facility:[facility] Start: 05-15-2023 Refill Amadeo Wellington DO Work Phone: Neurology Procedures Date Procedure Procedure Detail Performing Clinician Start: 05-08-2023 Culture bacterial quanttative colony count urine [facility] BOILER ATTENDANT.BACON DE RINDER Work Phone: Start: 05-08-2023 Urnls dip stick/tabl et rgnt auto w/o microscopy Darron Rockwellutzman BOILER ATTENDANT.BACON DE RINDER Work Phone: Start: 12-04-2022 Mammography Key[facility] BOILER ATTENDANT.BACON DE RINDER Work Phone: Start: 10-21-2022 Mri spinal canal lum bar w/o contrast material Thierry L Wiley DO Work Phone: Start: 02-18-2022 Lipid 1996 panel - S emma or Plasma Michi Menard MD Work Phone: Start: 01-27-2022 Mammography Jennie Childress MD Work Phone: Start: 12-31-2021 Colonoscopy Jennie Childress MD Work Phone: Start: 01-09-2021 Mammography Thierry Gar rison DO Work Phone: Plan of Treatment Date Care Activity Detail Author Start: 01-01-2032 Colonoscopy COLONOSCOPY [facility] Start: 01-01-2032 COLORECTAL CANCER SCREENING COLORECTAL CANCER SCREENING [facility] Start: 02-18-2027 Lipid 1996 panel - S emma or Plasma Lipid Screening [facility] Start: 02-18-2027 LIPID SCREEN LIPID SCREEN [facility] Start: 01-26-2026 DIABETES SCREEN DIABETES SCREEN [facility] Start: 01-26-2026 Diabetes Screening Diabetes Screenin g [facility] Start: 01-09-2026 HPV TESTING HPV TESTING [facility] Start: 01-09-2026 PAP TESTING PAP TESTING [facility] Start: 12-23-2025 DIABETES SCREEN DIABETES SCREEN [facility] Start: 10-01-2025 LIPID SCREEN LIPID SCREEN [facility] Start: 09-23-2025 DIABETES SCREEN DIABETES SCREEN [facility] Start: 06-11-2025 DIABETES SCREEN DIABETES SCREEN [facility] Start: 02-18-2025 DIABETES SCREEN DIABETES SCREEN [facility] Start: 07-10-2024 DIABETES SCREEN DIABETES SCREEN [facility] Start: 05-08-2024 Annual PCP Team Controls Operator Molded Goods robin Disease Visit Annual PCP Team Chronic Disease Visit [facility] Start: 02-20-2024 Urine microalbumin profile DTa P,Tdap,Td Vaccine (4 - Td or Tdap) [facility] Start: 01-27-2024 ANNUAL PCP TEAM NURSING TEACHER ROBIN DISEASE VISIT ANNUAL PCP TEAM CHRONIC DISEASE VISIT [facility] Start: 12-05-2023 Mammography [facility] Start: 10-18-2023 ANNUAL PCP TEAM NURSING TEACHER ROBIN DISEASE VISIT ANNUAL PCP TEAM CHRONIC DISEASE VISIT [facility] Start: 09-25-2023 ANNUAL PCP TEAM NURSING TEACHER ROBIN DISEASE VISIT ANNUAL PCP TEAM CHRONIC DISEASE VISIT [facility] Start: 09-25-2023 COVID-19 VACCINE (3 - Booster for Naty series) COVID-19 VACCINE (3 - Booster for Naty series) [facility] Immunizations Immunization Date Immunization Notes Care Provider Fa cility 09-13-2020 COVID-19 vaccine (NATY) Thierry Wiley DO Work Phone: [facility] 06-06-2019 influenza, injectabl e, quadrivalent, contains preservative Thierry Wiley DO Work Phone: [facility] 06-06-2019 influenza virus vaccine, unspecified formulation Michi Menard MD Work Phone: [facility] 03-28-2014 influenza, injectabl e, quadrivalent, preservative free Thierry Wiley DO Work Phone: [facility] Work Phone: 09-12-2012 tetanus toxoid, redu venus diphtheria toxoid, and acellular pertussis vaccine, adsorbed Thierry Wiley DO Work Phone: [facility] Work Phone: Payers Date Payer Category Payer Medicaid [id number] 2017 Medicaid [place] [employer] [employer] [id number] 2017-Present [phone] [address] [place] [address] Medicaid [id number] 2017 Medicaid [id number] Social History Date Type Detail Facility Start: 03-24-2011 End: 01-27-2022 Tobacco smoking status IAIS Never smoked tobacco [facility] Start: 01-23-2021 End: 05-08-2023 Alcohol intake Current drinker of alcohol (finding) [facility] Start: 09-16-2020 End: 09-22-2022 History SDOH Alcohol Frequency 4 [facility] Start: 09-16-2020 End: 09-22-2022 History SDOH Alcohol Std Drinks 1 [facility] Start: 01-15-2017 History SDOH Alcohol Comment Occasionally [facility] Start: 09-16-2020 End: 09-22-2022 History SDOH Social Connections Phone 5 [facility] Start: 09-16-2020 End: 09-22-2022 History SDOH Social Connections Get Together 2 [facility] Start: 09-16-2020 End: 09-22-2022 History SDOH Social Connections Meetings 3 [facility] Start: 09-16-2020 History SDOH Social Connections Living 8 [facility] Start: 09-16-2020 History SDOH Physica l Activity DPW 7 [facility] Start: 09-16-2020 End: 09-22-2022 History SDOH Physical Activity MPS 6 [facility] Start: 05-31-2019 Education 17 [facility] Start: 1975 Sex Assigned At Female C [facility] Start: 06-25-2021 End: 02-05-2022 Exposure to SARS-CoV-2 (event) Not sure [facility] Start: 03-24-2011 End: 01-27-2022 Tobacco use and exposure Smokeless tobacco non-user [facility] Start: 09-22-2022 End: 11-11-2022 History of Social function [place] [facility] Start: 09-22-2022 End: 11-11-2022 Social connection and isolation panel [facility] Do you belong to any clubs or organizations such as episcopal groups, unions, fraternal or athletic groups, or school groups? Yes [facility] Are you now , , , , never or living with a partner? [facility] How often to you hav e a drink containing alcohol? 2-3 time sa week [facility] How many standard dr inks containing alcohol do you have on a typical day? 1 or 2 [facility] How often do you hav e 6 or more drinks on 1 occasion? Never [facility] How hard is it for y ou to pay for the very basics like food, housing, medical care, and heating Patient refused [facility] Do you feel stress - tense, restless, nervous, or anxious, or unable to sleep at night because your mind is troubled all the time - these days [OSQ] To some extent [facility] (I/We) worried wheth er (my/our) food would run out before (I/we) got money to buy more. DK or Refused [facility] At any time in the p ast 12 months, were you homeless or living in snf [including now]? No [facility] Start: 06-20-2020 Gender identity Identifies as female gender (finding) [facility] Start: 06-20-2020 Sexual orientation Heterosexual (fannie vasquez) [facility] Clinical Notes 08-19-2016 to 07-01-2023 Telephone Encounter - Yusra Alfaro APRN.CNP - 05/15/2023 10:29 AM ESTTelephone Encounter - Josiah-Klaudia Baires LPN - 05/15/2023 9:03 AM ESTPatient Instructions Note Date & Type Note Facility 07-01-2023 Note HNO ID: [id number] Author: UMBERTO FRANKLIN MA Service: ? Author Type: Sleeping Car Service Attendant Type: Progress Notes Filed: 07/01/2023 15:01 Note Text: EVENT MONITOR DISPOSABLE PATCH INSTRUCTIONS Patient Name: Judie Hogan [facility] Number: [id number] Skin prepped and cleansed with alcohol Patch secured to prepped area Monitor Activated Serial #: [id number] Patient Instructed: Prescribed order timeframe Bathing guidelines Usage of event button and diary documentation Return of monitor at the end of prescribed order Call with problems [phone] or [phone]. [phone] Patient expresses a good understanding of instructions Umberto Franklin MA [facility] 07-01-2023 Note HNO ID: [id number] Author: PREM DURON RT(R) Service: Radiology Author Type: Technologist Type: Progress Notes Filed: 07/01/2023 12:57 Note Text: Radiology Service Progress Note PATIENT NAME: Judie Hogan DATE OF SERVICE: July 01, 2023 TIME: 12:40 PM PATIENT IDENTITY VERIFICATION COMPLETED USING TWO (2) IDENTIFIERS: Name and Date of confirmed by patient verbally. FALL SCREENING: Has the patient had 2 falls in the last year or 1 fall with injury or currently using an Ambulatory Assistive Device (Walker, Cane, Wheelchair, Crutches, etc.)? No PATIENT GENDER DATA: Female. status: : No status: NO. PATIENT RELEVANT IMPLANT DATA REVIEWED: Yes RADIOLOGY DEPARTMENT: General X-ray: Exam(s) Completed: Rib X-Ray: Right PERIPHERAL IV DATA: Not applicable SIGNED BY: RT Christiano(R) July 01, 2023 12:40 PM [facility] 07-01-2023 Note HNO ID: [id number] Author: HODAN COVINGTON MD Service: ? Author Type: Physician Type: Progress Notes Filed: 07/01/2023 15:01 Note Text: Chief Complaint Patient presents with: ED Follow-up HPI Judie Hogan is a 48 year old female who presents here today for ER Follow Up.. Patient evaluated at [facility] ED yesterday for complaint of syncopal episode which occurred around 3 am while in the kitchen. Woke up on the floor with nasal and low back pain as well as headache. Did not have loss of bowel/bladder control and did not believe she had a seizure. Workup in the ER was unremarkable with normal EKG, CBC, CMP, D dimer, troponin, UA, CT brain, CXR, lumbar spine xray, nasal bone xray. Diagnosed with fainting, back contusion, and facial contusion. Discharged home with recommendation to follow up 3-5. Today, states that she has not any recurrent syncopal episodes. Has soreness over her nose and lower back which she has been treating with tylenol and flexeril yesterday. Has been compliant with her medications including Keppra for history of seizures. Tolerating PO diet and has been using hydration pills in her water in case of dehydration. Denies chest pain, palpitations, lightheadedness/dizziness, fall, severe headache, nausea, vomiting,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 Conversion disorder 05/17/2012 12/20/2014 Seizure disorder 05/17/2012 03/29/2014 documented as of this encounter (statuses as of 12/06/2022) [facility] History of Past illness Narrative* Problem Noted Date Resolved Date 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 1 05/17/2014 Conversion disorder 05/17/2012 12/20/2014 Seizure disorder 05/17/2012 03/29/2014 documented as of this encounter (statuses as of 12/11/2022) [facility] History of Past illness Narrative* Problem Noted Date Diagnosed Date Resolved Date 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/10/2014 05/17/2014 Conversion disorder 05/17/2012 12/21/19 15 Seizure disorder 05/17/2012 03/29/2014 documented as of this encounter (statuses as of 12/15/2022) [facility] History of Past illness Narrative* Problem Noted Date Diagnosed Date Resolved Date 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/10/2014 05/17/2014 Conversion disorder 05/17/2012 12/21/19 15 Seizure disorder 05/17/2012 03/29/2014 documented as of this encounter (statuses as of 01/01/2023) [facility] History of Past illness Narrative* Problem Noted Date Diagnosed Date Resolved Date 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/10/2014 05/17/2014 Conversion disorder 05/17/2012 12/21/19 15 Seizure disorder 05/17/2012 03/29/2014 documented as of this encounter (statuses as of 01/27/2023) [facility]2017 History of Past illness Narrative* Problem Noted Date Diagnosed Date Resolved Date 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/10/2014 05/17/2014 Conversion disorder 05/17/2012 12/21/19 15 Seizure disorder 05/17/2012 03/29/2014 documented as of this encounter (statuses as of 01/28/2023) [facility] History of Past illness Narrative* Problem Noted Date Diagnosed Date Resolved Date 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/10/2014 05/17/2014 Conversion disorder 05/17/2012 12/21/19 15 Seizure disorder 05/17/2012 03/29/2014 documented as of this encounter (statuses as of 03/31/2023) [facility] History of Past illness Narrative* Problem Noted Date Diagnosed Date Resolved Date 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/10/2014 05/17/2014 Conversion disorder 05/17/2012 12/21/19 15 Seizure disorder 05/17/2012 03/29/2014 documented as of this encounter (statuses as of 04/08/2023) [facility] History of Past illness Narrative* Problem Noted Date Diagnosed Date Resolved Date 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/10/2014 05/17/2014 Conversion disorder 05/17/2012 12/21/19 15 Seizure disorder 05/17/2012 03/29/2014 documented as of this encounter (statuses as of 04/12/2023) [facility] History of Past illness Narrative* Problem Noted Date Diagnosed Date Resolved Date 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/10/2014 05/17/2014 Conversion disorder 05/17/2012 12/21/19 15 Seizure disorder 05/17/2012 03/29/2014 documented as of this encounter (statuses as of 05/05/2023) [facility] History of Past illness Narrative* Problem Noted Date Diagnosed Date Resolved Date 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/10/2014 05/17/2014 Conversion disorder 05/17/2012 12/21/19 15 Seizure disorder 05/17/2012 03/29/2014 documented as of this encounter (statuses as of 05/12/2023) [facility] History of Past illness Narrative* Problem Noted Date Diagnosed Date Resolved Date 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/10/2014 05/17/2014 Conversion disorder 05/17/2012 12/21/19 15 Seizure disorder 05/17/2012 03/29/2014 documented as of this encounter (statuses as of 05/12/2023) [address]14-2017 History of Past illness Narrative* Problem Noted Date Diagnosed Date Resolved Date 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/10/2014 05/17/2014 Conversion disorder 05/17/2012 12/21/19 15 Seizure disorder 05/17/2012 03/29/2014 documented as of this encounter (statuses as of 05/14/2023) [address]14-2017 History of Past illness Narrative* Problem Noted Date Diagnosed Date Resolved Date 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/10/2014 05/17/2014 Conversion disorder 05/17/2012 12/21/19 15 Seizure disorder 05/17/2012 03/29/2014 documented as of this encounter (statuses as of 05/14/2023) [address]14-2017 History of Past illness Narrative* Problem Noted Date Diagnosed Date Resolved Date 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/10/2014 05/17/2014 Conversion disorder 05/17/2012 12/21/19 15 Seizure disorder 05/17/2012 03/29/2014 documented as of this encounter (statuses as of 05/15/2023) [address]14-2017 History of Past illness Narrative* Problem Noted Date Diagnosed Date Resolved Date 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/10/2014 05/17/2014 Conversion disorder 05/17/2012 12/21/19 15 Seizure disorder 05/17/2012 03/29/2014 documented as of this encounter (statuses as of 05/15/2023) [facility] Punctate keratitis, bilateral- Primary Myopia, bilateral Myopia [facility] Punctate keratitis, bilateral- Primary Myopia, bilateral Myopia [facility] Diagnosis Encounter for screening for malignant neoplasm of colon- Primary Special screening for malignant neoplasms, colon Screening for colon cancer Special screening for malignant neoplasms, colon [facility] Diagnosis Encounter for gynecological examination without abnormal finding- Primary Routine gynecological examination Encounter for screening mammogram for malignant neoplasm of breast Other screening [facility] Diagnosis Well adult exam- Primary Routine general medical examination at a health care facility Fatigue, unspecified type Dyslipidemia Other and unspecified hyperlipidemia Hypothyroidism, acquired Unspecified hypothyroidism Vitamin D deficiency Unspecified vitamin D deficiency Screening for osteoporosis Special screening for osteoporosis Other viral warts History of COVID-19 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 [facility] Diagnosis Screening for colon cancer- Primary Special screening for malignant neoplasms, colon [facility] Diagnosis 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)- Primary Generalized convulsive epilepsy with intractable epilepsy [facility] Diagnosis Punctate keratitis, bilateral- Primary Myopia, bilateral Myopia Regular astigmatism of both eyes Regular astigmatism Presbyopia [facility] Diagnosis Hypothyroidism, acquired Unspecified hypothyroidism [facility] Diagnosis Varicose veins of right lower extremity with pain- Primary Varicose veins of lower extremities with other complications [facility] Diagnosis Abnormal mammogram- Primary Abnormal mammogram, unspecified [facility] Diagnosis Allergic contact dermatitis due to plants, except food- Primary Contact dermatitis and other eczema due to plants (except food) [facility] Diagnosis OPENED IN ERROR- Primary To allow closing an encounter opened in error (used in SmartSet) [facility] Diagnosis Rhus dermatitis- Primary Contact dermatitis and other eczema due to plants (except food) [facility]* Diagnosis Infection of superficial incisional surgical site after procedure, initial encounter- Primary Status post lumbar surgery Other postprocedural status [facility] Diagnosis Symptomatic varicose veins, right [facility] Diagnosis Chronic bilateral low back pain with bilateral sciatica Radiculopathy of lumbar region Thoracic or lumbosacral neuritis or radiculitis, unspecified Paresthesia of skin Disturbance of skin sensation History of compression fracture of spine Personal history of traumatic fracture [facility] Diagnosis 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 documented in this encounter [facility] note* Diagnosis 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 documented in this encounter [facility] note* Diagnosis Stress incontinence of urine- Primary Acute cystitis without hematuria Acute cystitis Bladder spasm Other specified disorders of bladder documented in this encounter [facility] note* Diagnosis 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 documented in this encounter [facility] note* Diagnosis Hypothyroidism, acquired Unspecified hypothyroidism documented in this encounter [facility] for referral (narrative)* Diagnostic Procedure Only (Routine) - Pending Review Specialty Diagnoses / Procedures Referred By Angel mcdowell Referred To Contact [facility] Diagnoses Encounter for screening mammogram for malignant neoplasm of breast Procedures ERIKA SCREENING W WILLIAM SCREENING DIGITAL BREAST TOMOSYNTHESIS BI SCREENING MAMMOGRAPHY BI 2-VIEW BREAST INC CAD Jennie Walls MD [address] [place] [address] [facility] [address] [place] [address] Referral ID Status Reason Start Date Expiration Date Visits Requested Visits Authorized [id number] Pending Review Auto-Generat ed Referral 01/27/2022 02/26/2023 1 1 [facility] for referral (narrative)* Outpatient Procedure (Routine) - Pending Review Specialty Diagnoses / Procedures Referred By Angel mcdowell Referred To Contact [facility] Diagnoses Screening for colon cancer Procedures COLONOSCOPY SCREENING COLONOSCOPY SCREENING COLONOSCOPY SCREENING COLONOSCOPY FLX DX W/COLLJ SPEC WHEN PFRMD COLONOSCOPY FLX DX W/COLLJ SPEC WHEN PFRMD COLONOSCOPY FLX DX W/COLLJ SPEC WHEN PFRMD Lourdes Collier PA-C [address] [address] [facility] [address] [place] [id number] Referral ID Status Reason Start Date Expiration Date Visits Requested Visits Authorized [id number] Pending Review Auto-Generat ed Referral 12/18/2021 12/18/2022 1 1 [facility] for referral (narrative)* Diagnostic Procedure Only (Routine) - Pending Review Specialty Diagnoses / Procedures Referred By Juan Carlosac t Referred To Contact [facility] Diagnoses Abnormal mammogram Procedures US BREAST LTD LEFT US BREAST UNI REAL TIME WITH IMAGE LIMITED Keyanna Meza APRN.[facility] [address] [place] [address] [facility] [address] [place] [address] Referral ID Status Reason Start Date Expiration Date Visits Requested Visits Authorized [id number] Pending Review Auto-Generat ed Referral 12/04/2022 01/03/2024 1 1 * Diagnostic Procedure Only (Routine) - Pending Review Specialty Diagnoses / Procedures Referred By Juan Carlosac t Referred To Contact [facility] Diagnoses Abnormal mammogram Procedures ERIKA DIAGNOSTIC LEFT DIAGNOSTIC MAMMOGRAPHY COMPUTER-AIDED DETCJ UNI Keyanna Meza APRN.[facility] DE RINDER [address] [place] [address] [facility] [address] [place] [address] Referral ID Status Reason Start Date Expiration Date Visits Requested Visits Authorized [id number] Pending Review Auto-Generat ed Referral 12/04/2022 01/03/2024 1 1 [facility] for referral (narrative)* Outpatient Procedure (Routine) - Closed Specialty Diagnoses / Procedures Referred By Juan Carlosac t Referred To Contact [facility] Diagnoses Symptomatic varicose veins, right Procedures US VENOUS INCOMPETENCY UNL VAS LAB DUP-SCAN XTR VEINS UNILATERAL/LIMITED STUDY Greta Moulton, DO [address] [place] [address] [facility] [address] [place] [address] Referral ID Status Reason Start Date Expiration Date V isits Requested Visits Authorized [id number] Closed Auto-Generate d Referral 03/10/2023 03/09/2024 1 1 [facility] Advance Directives No Advanced Directives Records FoundDocuments on File Type Date Recorded 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 Advance Directive(s) 01/04/2015 10:21 AM Documents on File Type Date Recorded 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 Advance Directive(s) 01/04/2015 10:21 AM Summary Purpose Family History No Family History Records FoundNo Family History Records FoundNo Family History Records Found Reason for Referral Specialty Diagnoses / Procedures Referred By Contac t Referred To Contact Amadeo Veras DO [address] [place] [address] Referral ID Status Reason Start Date Expiration Date Visits Re quested Visits Authorized [id number] Closed 1 1 Specialty Diagnoses / Procedures Referred By Contac t Referred To Contact Diagnoses 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 MDM 60-74 MINUTES Christal Lopez, BOILER ATTENDANT.[facility] [address] [place] [address] Referral ID Status Reason Start Date Expiration Date Visits Requested Visits Authorized [id number] Authorized PCP Requested Referral 09/24/2022 09/24/2023 1 1 Specialty Diagnoses / Procedures Referred By Contac t Referred To Contact [facility] Diagnoses Chronic bilateral low back pain with bilateral sciatica Radiculopathy of lumbar region Paresthesia of skin History of compression fracture of spine Procedures MRI LUMBAR SPINE WO IVCON MRI SPINAL CANAL LUMBAR W/O CONTRAST MATERIAL Thierry Wiley, DO [address] [facility] [place] [address] [place] [address] Referral ID Status Reason Start Date Expiration Date V isits Requested Visits Authorized [id number] Denied Auto-Generat ed Referral Patient Cleared - Admin/Chairm an/Director advise to proceed or did not respond 10/20/2022 11/19/2022 1 0 Additional Source Comments Source Comments (unrecognize d section and content) In the event this informatio n is protected by the Federal Confidentiality of Alcohol and Drug Abuse Patient Records regulations: The Federal rules restrict any use of the information to criminally investigate or prosecute any alcohol or drug abuse patient.[facility] event this information is protected by the Federal Confidentiality of Alcohol and Drug Abuse Patient Records regulations: The Federal rules restrict any use of the information to criminally investigate or prosecute any alcohol or drug abuse patient.[facility] the event this information is protected by the Federal Confidentiality of Alcohol and Drug Abuse Patient Records regulations: The Federal rules restrict any use of the information to criminally investigate or prosecute any alcohol or drug abuse patient.[facility] the event this information is protected by the Federal Confidentiality of Alcohol and Drug Abuse Patient Records regulations: The Federal rules restrict any use of the information to criminally investigate or prosecute any alcohol or drug abuse patient.[facility] the event this information is protected by the Federal Confidentiality of Alcohol and Drug Abuse Patient Records regulations: The Federal rules restrict any use of the information to criminally investigate or prosecute any alcohol or drug abuse patient.[facility] the event this information is protected by the Federal Confidentiality of Alcohol and Drug Abuse Patient Records regulations: The Federal rules restrict any use of the information to criminally investigate or prosecute any alcohol or drug abuse patient.[facility] the event this information is protected by the Federal Confidentiality of Alcohol and Drug Abuse Patient Records regulations: The Federal rules restrict any use of the information to criminally investigate or prosecute any alcohol or drug abuse patient.[facility] the event this information is protected by the Federal Confidentiality of Alcohol and Drug Abuse Patient Records regulations: The Federal rules restrict any use of the information to criminally investigate or prosecute any alcohol or drug abuse patient.[facility] the event this information is protected by the Federal Confidentiality of Alcohol and Drug Abuse Patient Records regulations: The Federal rules restrict any use of the information to criminally investigate or prosecute any alcohol or drug abuse patient.[facility] the event this information is protected by the Federal Confidentiality of Alcohol and Drug Abuse Patient Records regulations: The Federal rules restrict any use of the information to criminally investigate or prosecute any alcohol or drug abuse patient.[facility] the event this information is protected by the Federal Confidentiality of Alcohol and Drug Abuse Patient Records regulations: The Federal rules restrict any use of the information to criminally investigate or prosecute any alcohol or drug abuse patient.[facility] the event this information is protected by the Federal Confidentiality of Alcohol and Drug Abuse Patient Records regulations: The Federal rules restrict any use of the information to criminally investigate or prosecute any alcohol or drug abuse patient.[facility] the event this information is protected by the Federal Confidentiality of Alcohol and Drug Abuse Patient Records regulations: The Federal rules restrict any use of the information to criminally investigate or prosecute any alcohol or drug abuse patient.[facility]In the event this information is protected by the Federal Confidentiality of Alcohol and Drug Abuse Patient Records regulations: The Federal rules restrict any use of the information to criminally investigate or prosecute any alcohol or drug abuse patient.[facility]In the event this information is protected by the Federal Confidentiality of Alcohol and Drug Abuse Patient Records regulations: The Federal rules restrict any use of the information to criminally investigate or prosecute any alcohol or drug abuse patient.[facility] HospitalIn the event this information is protected by the Federal Confidentiality of Alcohol and Drug Abuse Patient Records regulations: The Federal rules restrict any use of the information to criminally investigate or prosecute any alcohol or drug abuse patient.[facility]In the event this information is protected by the Federal Confidentiality of Alcohol and Drug Abuse Patient Records regulations: The Federal rules restrict any use of the information to criminally investigate or prosecute any alcohol or drug abuse patient.[facility] HospitalIn the event this information is protected by the Federal Confidentiality of Alcohol and Drug Abuse Patient Records regulations: The Federal rules restrict any use of the information to criminally investigate or prosecute any alcohol or drug abuse patient.[facility] HospitalIn the event this information is protected by the Federal Confidentiality of Alcohol and Drug Abuse Patient Records regulations: The Federal rules restrict any use of the information to criminally investigate or prosecute any alcohol or drug abuse patient.[facility] HospitalIn the event this information is protected by the Federal Confidentiality of Alcohol and Drug Abuse Patient Records regulations: The Federal rules restrict any use of the information to criminally investigate or prosecute any alcohol or drug abuse patient.[facility] HospitalIn the event this information is protected by the Federal Confidentiality of Alcohol and Drug Abuse Patient Records regulations: The Federal rules restrict any use of the information to criminally investigate or prosecute any alcohol or drug abuse patient.[facility] HospitalIn the event this information is protected by the Federal Confidentiality of Alcohol and Drug Abuse Patient Records regulations: The Federal rules restrict any use of the information to criminally investigate or prosecute any alcohol or drug abuse patient.[facility] HospitalIn the event this information is protected by the Federal Confidentiality of Alcohol and Drug Abuse Patient Records regulations: The Federal rules restrict any use of the information to criminally investigate or prosecute any alcohol or drug abuse patient.[facility] HospitalIn the event this information is protected by the Federal Confidentiality of Alcohol and Drug Abuse Patient Records regulations: The Federal rules restrict any use of the information to criminally investigate or prosecute any alcohol or drug abuse patient.[facility] HospitalIn the event this information is protected by the Federal Confidentiality of Alcohol and Drug Abuse Patient Records regulations: The Federal rules restrict any use of the information to criminally investigate or prosecute any alcohol or drug abuse patient.[facility] HospitalIn the event this information is protected by the Federal Confidentiality of Alcohol and Drug Abuse Patient Records regulations: The Federal rules restrict any use of the information to criminally investigate or prosecute any alcohol or drug abuse patient.[facility] HospitalIn the event this information is protected by the Federal Confidentiality of Alcohol and Drug Abuse Patient Records regulations: The Federal rules restrict any use of the information to criminally investigate or prosecute any alcohol or drug abuse patient.[facility] HospitalIn the event this information is protected by the Federal Confidentiality of Alcohol and Drug Abuse Patient Records regulations: The Federal rules restrict any use of the information to criminally investigate or prosecute any alcohol or drug abuse patient.[facility] HospitalIn the event this information is protected by the Federal Confidentiality of Alcohol and Drug Abuse Patient Records regulations: The Federal rules restrict any use of the information to criminally investigate or prosecute any alcohol or drug abuse patient.[facility] HospitalIn the event this information is protected by the Federal Confidentiality of Alcohol and Drug Abuse Patient Records regulations: The Federal rules restrict any use of the information to criminally investigate or prosecute any alcohol or drug abuse patient.[facility] HospitalIn the event this information is protected by the Federal Confidentiality of Alcohol and Drug Abuse Patient Records regulations: The Federal rules restrict any use of the information to criminally investigate or prosecute any alcohol or drug abuse patient.[facility] HospitalIn the event this information is protected by the Federal Confidentiality of Alcohol and Drug Abuse Patient Records regulations: The Federal rules restrict any use of the information to criminally investigate or prosecute any alcohol or drug abuse patient.[facility] HospitalIn the event this information is protected by the Federal Confidentiality of Alcohol and Drug Abuse Patient Records regulations: The Federal rules restrict any use of the information to criminally investigate or prosecute any alcohol or drug abuse patient.[facility] HospitalIn the event this information is protected by the Federal Confidentiality of Alcohol and Drug Abuse Patient Records regulations: The Federal rules restrict any use of the information to criminally investigate or prosecute any alcohol or drug abuse patient.[facility] HospitalIn the event this information is protected by the Federal Confidentiality of Alcohol and Drug Abuse Patient Records regulations: The Federal rules restrict any use of the information to criminally investigate or prosecute any alcohol or drug abuse patient.[facility] HospitalIn the event this information is protected by the Federal Confidentiality of Alcohol and Drug Abuse Patient Records regulations: The Federal rules restrict any use of the information to criminally investigate or prosecute any alcohol or drug abuse patient.[facility] Reason for Visit (unrecogniz ed section and content) Reason Comments Dry Eye(s) Both Eyes Reason Comments Dry Eye Syndrome Follow Up Contact Lens Follow Up Reason Onset Date Comments Outpatient Colonoscopy 11/20/2021 Reason Comments Consult colonoscopy Reason Comments Yearly Exam Reason Comments Physical Reason Comments 12/31/2021 COLON LODI Reason Comments Results Reason Comments Forms BMV Reason Comments Follow Up Reason Comments Blurred Vision Both Eyes Reason Onset Date Comments Refill Request 08/13/2022 Reason Comments Varicose Veins Back of rt lower leg . 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 Reason Comments Patient Request Reason Comments Orders Reason Comments poison esme Poison esme all over x 1 week Reason Comments home care for certifications Opened In Error Reason Comments Rash recurring-blistering Reason Comments Forms Clearance Reason Comments Medical Clearance Reason Comments Infection Possible surgical in fection lower left side, puss and redness x 2 days Reason Comments Consult Symptomatic varicose veins, Right Specialty Diagnoses / Procedures Referred By Contac t Referred To Contact Vascular Surgery Diagnoses Symptomatic varicose veins, right Procedures CONSULT TO VASCULAR SURGERY OFFICE/OUTPATIENT NEW HIGH MDM 60-74 MINUTES Thierry Wiley, DO [address] [place] [address] Referral ID Status Reason Start Date Expiration Date V isits Requested Visits Authorized [id number] Closed PCP Requested Referral 01/26/2023 01/26/2024 1 1 Specialty Diagnoses / Procedures Referred By Contac t Referred To Contact MR IMAGING Diagnoses Chronic bilateral low back pain with bilateral sciatica Radiculopathy of lumbar region Paresthesia of skin History of compression fracture of spine Procedures MRI LUMBAR SPINE WO IVCON MRI SPINAL CANAL LUMBAR W/O CONTRAST MATERIAL Thierry Wiley, DO [address] [place] [address] [place] [address] Referral ID Status Reason Start Date Expiration Date V isits Requested Visits Authorized [id number] Denied Auto-Generat ed Referral Patient Cleared - Admin/Chairm an/Director advise to proceed or did not respond 10/20/2022 11/19/2022 1 0 Reason Onset Date Comments Refill Request 05/02/2023 Reason Onset Date Comments Refill Request 05/04/2023 Reason Comments urinary incontience On and off x 2 month s, recently had back surgery 2 months ago. Reason Comments Medication Authorization PA for clonazeP AM orally disintegrating (KLONOPIN WAFER) 0.5 mg disintegrating tablet Reason Onset Date Comments Refill Request 05/15/2023 Care Teams (unrecognized sec tion and content) Milled Rice Broker Relationship Specialty Start Date End Date Thierry Wiley DO [address] [place], [place] [id number] PCP - General Family Practice 10/14/15 Milled Rice Broker Relationship Specialty Start Date End Date Thierry Wiley DO [address] [place], [place] [id number] PCP - General Family Practice 10/14/15 Milled Rice Broker Relationship Specialty Start Date End Date Thierry Wiley DO [address] [place] [address] PCP - General Family Practice 10/14/15 Milled Rice Broker Relationship Specialty Start Date End Date Thierry Wiley, DO [address] [place] [address] PCP - General Family Practice 10/14/15 Milled Rice Broker Relationship Specialty Start Date End Date Thierry Wiley, DO [address] [place] [address] PCP - General Family Practice 10/14/15 Milled Rice Broker Relationship Specialty Start Date End Date Thierry Wiley, DO [address] [place] [address] PCP - General Family Practice 10/14/15 Milled Rice Broker Relationship Specialty Start Date End Date Thierry Wiley, DO [address] [place] [address] PCP - General Family Practice 10/14/15 Milled Rice Broker Relationship Specialty Start Date End Date Thierry Wiley, DO [address] [place] [address] PCP - General Family Practice 10/14/15 Milled Rice Broker Relationship Specialty Start Date End Date Thierry Wiley, DO [address] [place] [address] PCP - General Family Medicine 10/14/15 Milled Rice Broker Relationship Specialty Start Date End Date Thierry Wiley, DO [address] [place] [address] PCP - General Family Medicine 10/14/15 Milled Rice Broker Relationship Specialty Start Date End Date Thierry Wiley, DO [address] [place] [address] PCP - General Family Medicine 10/14/15 Milled Rice Broker Relationship Specialty Start Date End Date Thierry Wiley, DO [address] [place] [address] PCP - General Family Medicine 10/14/15 Milled Rice Broker Relationship Specialty Start Date End Date Thierry Wiley, DO [address] [place] [address] PCP - General Family Medicine 10/14/15 Milled Rice Broker Relationship Specialty Start Date End Date Thierry Wiley, DO [address] [facility] [place] [address] PCP - General Family Medicine 10/14/15 Milled Rice Broker Relationship Specialty Start Date End Date Thierry Wiley, DO [address] [place] [address] PCP - General Family Medicine 10/14/15 Milled Rice Broker Relationship Specialty Start Date End Date Thierry Wiley, DO [address] [place] [place] [address] PCP - General Family Medicine 10/14/15 Milled Rice Broker Relationship Specialty Start Date End Date Thierry Wiley DO [address] [place] [place] [address] PCP - General Family Medicine 10/14/15 Milled Rice Broker Relationship Specialty Start Date End Date Thierry Wiley, DO [address] [place] [address] PCP - General Family Medicine 10/14/15 Milled Rice Broker Relationship Specialty Start Date End Date Thierry Wiley DO [address] [place] [address] PCP - General Family Medicine 10/14/15 Milled Rice Broker Relationship Specialty Start Date End Date Thierry Wiley DO [address] [place] [address] PCP - General Family Medicine 10/14/15 Milled Rice Broker Relationship Specialty Start Date End Date Thierry Wiley, [address] [place] [address] PCP - General Family Medicine 10/14/15 Milled Rice Broker Relationship Specialty Start Date End Date Thierry Wiley, [address] [place] [address] PCP - General Family Medicine 10/14/15 Milled Rice Broker Relationship Specialty Start Date End Date Thierry Wiley, [address] [place] [address] PCP - General Family Medicine 10/14/15 Milled Rice Broker Relationship Specialty Start Date End Date Thierry Wiley, [address] [place] [address] PCP - General Family Medicine 10/14/15 Milled Rice Broker Relationship Specialty Start Date End Date Thierry Wiley DO [address] [place] [address] PCP - General Family Medicine 10/14/15 Milled Rice Broker Relationship Specialty Start Date End Date Thierry Wiley DO [address] [place] [address] PCP - General Family Medicine 10/14/15 Milled Rice Broker Relationship Specialty Start Date End Date Thierry Wiley DO [address] [place] [address] PCP - General Family Medicine 10/14/15 Milled Rice Broker Relationship Specialty Start Date End Date Thierry Wiley, [address] [place] [address] PCP - General Family Medicine 10/14/15 Milled Rice Broker Relationship Specialty Start Date End Date Thierry Wiley DO [address] [place] [address] PCP - General Family Medicine 10/14/15 Milled Rice Broker Relationship Specialty Start Date End Date Thierry Wiley DO [address] [place] [address] PCP - General Family Medicine 10/14/15 INFORMATION SOURCE (unrecogn ized section and content) DATE CREATED AUTHOR AUTHOR'S ORGANIZ ATION 06/13/2022 [facility] DATE CREATED AUTHOR AUTHOR'S ORGANIZ ATION 07/05/2023 [facility] FOR RECORDS PERTAINING TO PATIENTS WHO ARE OR HAVE BEEN ENROLLED IN A CHEMICAL DEPENDENCY/SUBSTANCEABUSE PROGRAM, SOME INFORMATION MAY BE OMITTED. This clinical summary was aggregated from multiple sources. Caution should be exercised in using it in the provision of clinical care. This summary normalizes information from multiple sources, and as a consequence, information in this document may materially change the coding, format and clinical context of patient data. In addition, data may be omitted in some cases. CLINICAL DECISIONS SHOULD BE BASED ON THE PRIMARY CLINICAL RECORDS. [facility]. provides no warranty or guarantee of the accuracy or completeness of information in this document.
[2023-07-06] MEDS: Lactated Ringers 1,000 ML 15 ML IV (06:45)
[2023-07-06 07:00] LABS: Internal QC Validated? YES +Cl - CLEAR BKGD; Pregnancy, Urine Negative Negative
[2023-07-06] MEDS: Cefazolin 2 GM in 0.9% Normal Saline (100mL Bag) 100 ML IV (07:26)
[2023-07-06] MEDS: HYDROcodone Bitartrate/Apap 5/325 Tablet PO (08:45)
--- NOTE | 2023-07-06 09:36 | PCM.OPRPT ---
Report of Operation Date of Procedure: 07/06/23 Pre-Operative Diagnosis: A1 stenosing tenosynovitis RMF Post-Operative Diagnosis: same Surgery/Procedure Performed:: Release A1 Aubrey RMF Description of Surgical Findings:: Report of Operation Date of Procedure: 07/03/2023 Preoperative Diagnosis: A1 stenosing tenosynovitis, right [ middle ] finger Postoperative Diagnosis: same Procedure Performed: A1 stenosing tenosynovitis, right [ middle ] finger Anesthesia: IV Regional Anesthesiologist: Gwyn Rangel M.D. Description of Procedure: With appropriate informed consent, the patient was taken to the operative suite. After the induction of regional anesthesia, the right upper extremity was prepared and draped sterilely. Subsequently, a transverse incision was made in the base of the [middle ] finger on the volar aspect overlying the annular aubrey with #15 blade scalpel. Hemostasis was perfected with bipolar electrocautery. Dissection was carried down to the flexor tendon sheath. Retractors were placed medially and laterally for protection of neurovascular structures. Thereafter, the annular aubrey was incised with a combination of scalpel and scissor dissection. The flexor tendon was inspected and I was able to take the right [ middle ] finger through a full range of motion without any catching, locking or triggering. Subsequently, the wound was irrigated and closed with interrupted sutures of 4-0 nylon. A sterile well-padded dressing and Balwinder wrap were applied. The tourniquet was released. Excellent blood flow returned to the right upper extremity. The patient was transferred to the PACU in stable and satisfactory condition. Italo Lawson DO Surgeon: Italo Lawson hand binder cutter: None Type of Anesthesia: Block,[place] Anesthesiologist: Gwyn Rangel Admit VTE Documentation VTE Present on Admission: No VTE Mechan Device Prophylaxis: SCD's and Thigh High KELLI Hose VTE Pharm Prophylaxis ordered?: No Reason prophylaxis not ordered:: Treatment Not Indicated
== END 2023-07-06 09:28 | disposition home or self-care (01) ==
LOC: SDC 05:59 → AC 06:00
PROVIDERS: Anesthesiology; PCP Student in an Organized Health Care Education/Training Program; Referring Provider Orthopaedic Surgery; Visit Provider Orthopaedic Surgery
PROC: (CPT 26055; principal; 2023-07-06 07:20)
DX: M65.331 Trigger finger, right middle finger (principal); M19.041 Primary osteoarthritis, right hand; M79.644 Pain in right finger(s); I10 Essential (primary) hypertension; E07.9 Disorder of thyroid, unspecified; Z86.16 Personal history of COVID-19; Z98.1 Arthrodesis status; Z90.49 Acquired absence of other specified parts of digestive tract; F12.90 Cannabis use, unspecified, uncomplicated
CPT/HCPCS: 26055; 01810; 81025; J7120; J2405

== ENCOUNTER 2024-02-15 10:30 | Outpatient (RCR) | payer MEDICAID, SELFPAY ==
--- NOTE | 2024-01-27 14:26 | HP.OTEVAL_ITS ---
Patient's Visit Information Visit Information Visit Information: JUDIE STANLEY is a 48 year old F, referred to Occupational Therapy by Javon Alvarez PA-C, with a diagnosis of wrist sprain, CTS, wrist pain. Date of Evaluation: 01/27/24 Occupational Therapist: Sharon Mckeon Subjective Subjective: This 48 year old female referred to OT with dx of wrist sprain, CTS wrist pain. pt has an extensive medical history with multiple previous surgeries. 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 pt has been having the pain in L wrist for approx a month DR gave pt 8 days of prednisone as well as cream. pt has been wearing brace almost all the time except for when in the shower for the last month. Pt is R hand dominant. Pt was been wearing three braces all at once layered. 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 Pt was also working at [employer] still employed there however unable to work currently. Pain L wrist 1st compartment: Current Pain Intensity: 9 Objective Objective/Observation: Pt does arrive this date with thumb spica brace on L wrist. pt reports having three different types of braces. no visual swelling noted skin intact. 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 Helper Gas: L 30 R 65 Lateral Pinch: L 8 R 12 Tripod Pinch: L 5 R 10 Edema Other: none noted Sensation Sensation Comments: denies Quick DASH-Disab of Arm,Shoulder& Hand Quick DASH Score: 84.0900 Goals Goal:ROM equal to unaffected hand: Yes Goal:Welding Machine Operator Helper Gas/Pinch strength at least 75% of unaffected hand: Yes Goal:No pain with affected hand use: Yes Goal:Full use of affected hand in daily activities including work: Yes Other Goal: pt will improve quick dash score (84.09) in order to promote increased use of L hand during all functional tasks pt will verbalize/ demonstrate 100% accuracy in radial sided massage by second session pt will verbalize/ demosntrate 100% accuracy in proper bracing fit and wear schedule by second session Rehabilitation General Assessment: This 48 year old female presents with L wrist pain. pt reports she saw who confirmed a positive test for dequerveins. 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 pt would benefit from OT services 1-2x a week for 4-6 weeks to address pain management, ROM, and strength for return to day to day tasks. Rehabilitation Potential: Good Anticipated Interventions Anticipated Interventions: A/AAROM/PROM, Strengthening, Scar Care, Triggerpoint Release, Modalities, Orthoses, Joint Protection/Energy Conservation, Education re assistive Equipment, Education re Diagnosis, Education re Self Massage Techniques and Home Program Visit Plan Frequency: 1-2x /Week Duration: 4-6 Weeks General Plan: pain management modalities bracing stretch isometrics radial sided massage TEXT: Thank you for the opportunity to evaluate your patient. For Medicare and Medicare HMO plans, please review the plan of care and approve it. It will need to be FAXED BACK to us at [phone] for Medicare purposes. Please let me know if there are questions or concerns regarding this plan of care. Physician S ignature: Date:
--- NOTE | 2024-04-27 18:07 | HP.OT.NRP ---
Patient Information Patient Information: JUDIE STANLEY was seen in my office for initial evaluation on 01/27/24. The following Plan of Care was established for this patient: POC Established Initial Frequency: 1-2x /Week Initial Duration: 4-6 Weeks Plan: Continue POC: 1-2 x week for 4-6 weeks Anticipated Interventions Anticipated Interventions: A/AAROM/PROM, Strengthening, Scar Care, Triggerpoint Release, Modalities, Orthoses, Joint Protection/Energy Conservation, Education re assistive Equipment, Education re Diagnosis, Education re Self Massage Techniques and Home Program Last Seen Last Seen: This patient was last seen in our office 02/15/24. Pertinent comments regarding their Occupational therapy will appear below: this 48 year old female seen for OT dx of L wrist sprain, CTS. This pt seen for 8 visits for pain management, ed on activity modification, bracing, stretches as well as gentle strengthening. discharge at this time as pt was to see and discuss injection versus surgery. At this point I will be discontinuing this patient from occupational therapy. I would be happy to see this patient again in the future if found appropriate by the physician. Thank you! Sharon Mckeon
== END 2024-02-15 19:00 | disposition home or self-care (01) ==
LOC: OT 10:30
PROVIDERS: PCP Student in an Organized Health Care Education/Training Program; Referring Provider Physician Assistant; Visit Provider Physician Assistant
DX: S63.592D Other specified sprain of left wrist, subsequent encounter (principal); G56.02 Carpal tunnel syndrome, left upper limb; M25.532 Pain in left wrist
CPT/HCPCS: 97035; 97110; 97140; 97166; 97530

== ENCOUNTER → 2024-05-12 | Outpatient (CLI) | payer MEDICAID, SELFPAY ==
--- NOTE | 2024-05-12 | CYST_PTH ---
PATIENT: JUDIE KUHN LOC: [facility] U#:[id number] AGE/SX: 48/F ROOM: RE05/12/[address]: Dr. Ezequiel Marie MD : 1975 BED: DIS: 05/12/2024 SPEC #: [id number] RECD: 05/12/24 15:47 STATUS: AMY RELito #: [id number] JAGDEEP: 05/12/24 00:[address]: Ezequiel Marie DEPT: SURGICAL PATHOLOGY RECD BY: Sierra Chavez ENTERED: 05/13/24 07:44 SP TYPE: Cyst OTHR DR: No Primary Care Phys Tissues: A - CYST B - CYST C - CYST Procedures: Surgery Specimen Level III HEADER OPERATION: Excision/closure neck cysts PRE-OP DIAGNOSIS: Neck cysts TISSUE SUBMITTED: A- Inferior right neck, B- Middle neck, C- Left lower neck MICROSCOPIC DIAGNOSIS A. Skin lesion, right inferior neck, excision: Epidermal inclusion cyst and mild solar elastosis. B. Skin lesion, middle neck, biopsy: Minimal dermal chronic inflammation and mild solar elastosis. C. Skin lesion, left lower neck, biopsy: Minimal chronic folliculitis and mild solar elastosis. AM. 05/17/2024 MICROSCOPIC DESCRIPTION Slides are reviewed. GROSS DESCRIPTION A. Received in fixative is one container labeled with the patient's name and designated Inferior right neck. The specimen consists of an ellipse of light morales excised skin measuring 0.6 x 0.5 x 0.2cm. The specimen is inked and totally submitted in its entirety in one cassette. B. Received in fixative is one container labeled with the patient's name and designated Middle neck. The specimen consists of an ellipse of light morales excised skin measuring 1.0 x 0.5 x 0.2cm. The specimen is inked and totally submitted in its entirety in one cassette. C. Received in fixative is one container labeled with the patient's name and designated Left lower neck. The specimen consists of an irregular fragment of morales tissue measuring 0.5 x 0.3 x 0.2cm. The specimen is bisected and totally submitted in one cassette. AM 05/13/2024 TC:3 CPT:48461i6
== END | disposition home or self-care (01) ==
LOC: LABSPEC 16:00
PROVIDERS: Referring Provider Surgery Plastic and Reconstructive Surgery; Visit Provider Surgery Plastic and Reconstructive Surgery
DX: R22.1 Localized swelling, mass and lump, neck (principal)
CPT/HCPCS: 88304

== ENCOUNTER 2025-02-02 08:29 | Outpatient (RCR) | payer OTHER, SELFPAY ==
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
--- NOTE | 2025-02-03 12:03 | HP.OTFCE.D ---
FCE D/C Summary Discharge text: JUDIE KUHN was seen for a one time visit for an FCE on 02/02/25 and is discharged.
== END 2025-02-02 19:00 | disposition home or self-care (01) ==
LOC: OT 08:29
PROVIDERS: PCP Student in an Organized Health Care Education/Training Program; Referring Provider Student in an Organized Health Care Education/Training Program; Visit Provider Student in an Organized Health Care Education/Training Program
DX: M54.41 Lumbago with sciatica, right side (principal); M54.42 Lumbago with sciatica, left side; G40.319 Generalized idiopathic epilepsy and epileptic syndromes, intractable, without status epilepticus; M47.816 Spondylosis without myelopathy or radiculopathy, lumbar region; M48.061 Spinal stenosis, lumbar region without neurogenic claudication; M54.16 Radiculopathy, lumbar region; Z98.890 Other specified postprocedural states
CPT/HCPCS: 97750

== ENCOUNTER 2025-03-01 16:56 | Outpatient (CLI) | payer OTHER, SELFPAY ==
--- NOTE | 2025-03-01 10:09 | CYST_PTH ---
PATIENT: JUDIE KUHN LOC: [facility] U#:[id number] AGE/SX: 49/F ROOM: RE03/01/[address]: Dr. Ezequiel Marie MD : 1975 BED: DIS: 03/01/2025 SPEC #: [id number] RECD: 03/02/25 08:10 STATUS: AMY YOLA #: [id number] JAGDEEP: 03/01/25 10:[address]: Ezequiel Marie DEPT: SURGICAL PATHOLOGY RECD BY: Jose Jones Tissues: A - CYST B - CYST C - CYST Procedures: Surgery Specimen Level III HEADER OPERATION: Excision cysts on thigh x3 PRE-OP DIAGNOSIS: Thigh cysts TISSUE SUBMITTED: A-Right medial thigh cyst, B-Left medial proximal thigh cyst, C-Left distal thigh cyst MICROSCOPIC DIAGNOSIS A. Skin, thigh, right, medial, excision: * Prominent hair follicle, negative for neoplasia. * A cyst is not observed in these sections. B. Skin, thigh, left, medial, proximal, excision: * Benign verruciform keratosis. * A cyst is not observed in these sections. C. Skin, thigh, distal, excision: * Benign dermal vascular proliferation suggestive of arteriovenous malformation. 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 MICROSCOPIC DESCRIPTION Slides are reviewed. GROSS DESCRIPTION Received in 3 formalin containers labeled with the patient's name and date of . Designated as: A. Right medial thigh cyst is a 1.0 x 0.3 cm morales skin ellipse, devoid of orientation, excised to maximum depth of 0.4 cm. The resection margin is inked green. Sectioning reveals morales-white, rubbery cut surfaces. No definitive lesions are grossly appreciated. Entirely submitted in 1 cassette. B. Left medial proximal thigh is a 0.8 x 0.5 x 0.2 cm morales-white, disrupted apparent cyst with an attached portion of morales skin devoid of orientation, 0.6 x 0.3 cm. The apparent cyst is inked black. Sectioning reveals morales-white, rubbery cut surfaces. Entirely submitted in 1 cassette. C. Left distal thigh cyst is a 1.1 x 0.4 cm morales skin ellipse devoid of orientation excised to a maximum depth of 0.3 cm. There is focal blue dye discoloration on the epidermal surface. The resection margin is inked orange. Sectioning reveals morales-white, firm to rubbery cut surfaces. Entirely submitted in 1 cassette. MD 03/02/2025 CPT:97462l2
== END 2025-03-01 23:59 | disposition home or self-care (01) ==
LOC: LAB 17:00
PROVIDERS: Referring Provider Surgery Plastic and Reconstructive Surgery; Visit Provider Surgery Plastic and Reconstructive Surgery
DX: L73.8 Other specified follicular disorders (principal); L82.1 Other seborrheic keratosis; L28.0 Lichen simplex chronicus; L28.1 Prurigo nodularis
CPT/HCPCS: 88304